=== PATIENT | male | born 1940 | race Caucasian/White ===

== ENCOUNTER 2016-10-24 21:05 | Inpatient (IN) | payer OTHER ==
[~2016-10-24] VITALS: Ht 180.3 cm; Wt 101.9 kg
[~2016-10-24 21:05] MED LIST: EPINEPHrine HCL (1:1000) 1 MG/ML VIAL IV ONE; LACTATED RINGER'S 1000 ML INJ 1,000 ML IV ONE; NOREPINEPHRINE-DEXTROSE DRIP 4 MG/250 ML BAG IV ONE; ONDANSETRON HCL 4 MG/2 ML VIAL IV PUSH ONE; PHENYLEPH/NS 1000 MCG/10 ML SYR IV ONE; PHENYLEPHRINE HCL 10 MG/ML VIAL IV ONE; SODIUM BICARBONATE 8.4% INJ 50 MEQ/50 ML SYR IV ONE
[2016-10-24 21:10] VITALS: O2SAT 100
[2016-10-24 21:29] LABS: I-STAT POTASSIUM 3.8 MMOL/L (3.5-4.9)
[2016-10-24 21:33] LABS: AUTOMATED NEUTROPHIL # 9.6 TH/MM3 (1.8-7.7); BASOPHIL # 0.1 TH/MM3 (0-0.2); BASOPHIL % 0.5 % (0.0-2.0); EOSINOPHIL # 0.4 TH/MM3 (0-0.4); HEMATOCRIT 29.4 % (39.0-51.0); LYMPH % 38.2 % (9.0-44.0); MEAN CELL VOLUME 76.4 FL (80.0-100.0); MEAN CORPUSCULAR HEMOGLOBIN 23.8 PG (27.0-34.0); MEAN CORPUSCULAR HGB CONC 31.2 % (32.0-36.0); MONO % 6.6 % (0.0-8.0); NEUT % 52.7 % (16.0-70.0); PLATELET COUNT 326 TH/MM3 (150-450); RED BLOOD COUNT 3.85 MIL/MM3 (4.50-5.90); RED CELL DISTRIBUTION WIDTH 17.2 % (11.6-17.2); WHITE BLOOD COUNT 18.3 TH/MM3 (4.0-11.0)
[2016-10-24] MEDS ORDERED: ceFAZolin 2 GM PREMIX 50 ML IV STA (21:33)
[2016-10-24] MEDS ORDERED: DIPHTH/TETANUS/ACEL PERTUSSIS (BOOSTER) 0.5 ML VIAL/PFS IM ONE (21:33)
[2016-10-24 21:34] LABS: HEMO FLAGS AUTO DIFF
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
[2016-10-24] MEDS ORDERED: IOHEXOL 350 MG/ML 10 ML VIAL (for RAD DIAG) IV ONE (21:39)
[2016-10-24 21:45] LABS: APTT (PATIENT) 24.2 SEC (24.3-30.1); PROTHROMBIN TIME - PATIENT 10.8 SEC (9.8-11.6)
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
[2016-10-24] MEDS ORDERED: ONDANSETRON HCL 4 MG/2 ML VIAL IV PRN (22:00)
[2016-10-24] MEDS ORDERED: levETIRAcetam INJ 500 MG in SODIUM CHLORIDE 0.9% INJ 100 ML IV SCH ×2 (22:00→22:30)
[2016-10-24] MEDS ORDERED: SODIUM CHLORIDE 0.9% FLUSH 5 ML FLUSH IVF PRN (22:00)
[2016-10-24] MEDS ORDERED: DOCUSATE SODIUM 100 MG CAP PO PRN (22:00)
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
[2016-10-24 22:09] LABS: BANDS 3 % (0-6); EOSINOPHILS 1 % (0-4); PLATELET ESTIMATE SMEAR NORMAL (NORMAL); PLATELET MORPHOLOGY NORMAL (NORMAL); POLYS (SEG NEUTROPHILS) 68 % (16-70); SCAN/DIFF FINAL DIFF MANUAL; WBC DIFF SAMPLE 100
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
[2016-10-24] MEDS ORDERED: POTASSIUM PHOSPHATE MONOBASIC 500 MG TAB PO/TUBE PRN (22:15)
[2016-10-24] MEDS ORDERED: POTASSIUM PHOSPHATE INJ 30 MMOL in SODIUM CHLOR 0.9% 250 ML INJ 250 ML IV PRN (22:15)
[2016-10-24] MEDS ORDERED: MAGNESIUM SULFATE INJ 4 GM in SODIUM CHLORIDE 0.9% INJ 92 ML IV PRN (22:15)
[2016-10-24] MEDS ORDERED: MAGNESIUM SULFATE INJ 2 GM in SODIUM CHLORIDE 0.9% INJ 96 ML IV PRN (22:15)
[2016-10-24] MEDS ORDERED: POTASSIUM CHLOR 20 MEQ PREMIX 100 ML IV PRN ×2 (22:15)
[2016-10-24] MEDS ORDERED: PROPOFOL 1000 MG/100 ML INJ 100 ML IV SCH (22:15)
[2016-10-24] MEDS ORDERED: POTASSIUM CL 40 MEQ/30 ML LIQ UDC PO/TUBE PRN ×2 (22:15)
[2016-10-24] MEDS ORDERED: MAGNESIUM OXIDE 400 MG TAB PO PRN (22:15)
[2016-10-24] MEDS ORDERED: POTASSIUM PHOSPHATE MONOBASIC 500 MG TAB PO PRN (22:15)
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
[2016-10-24] MEDS ORDERED: ceFAZolin INJ 1,000 MG VIAL IV ONE (22:19)
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
[2016-10-24] MEDS ORDERED: THROMBIN (TOPICAL) 5,000 UNIT VIAL ONE (22:44)
[2016-10-24 22:45] LABS: BLOOD GAS BASE EXCESS -4.6 mmol/L (-2-2); BLOOD GAS CARBOXYHEMOGLOBIN 1.8 % (0-4); BLOOD GAS HCO3 20 mmol/L (22-26); BLOOD GAS METHEMOGLOBIN 0.8 % (0-2); BLOOD GAS O2 HGB SATURATION 97 % (90-100); BLOOD GAS OXYGEN CONTENT 13.5 Vol % (12.0-20.0); BLOOD GAS PCO2 36 mmHg (38-42); BLOOD GAS PO2 175 mmHg (61-120); BLOOD GAS TOTAL HGB 9.7 G/DL (12.0-16.0); CRITICAL VALUE NO; FIO2 100 %; OXYGEN DEVICE O.R. ABG; STAT YES; TEMP CORR TO 98.6
[2016-10-24] MEDS ORDERED: LIDOCAINE 2%/EPINEPHrine 1:100,000 30ML MDV ONE (22:45)
[2016-10-24] MEDS ORDERED: GELFOAM SIZE 100 ONE (22:45)
[2016-10-24] MEDS ORDERED: LIDOCAINE 1.5%/EPINEPHrine 1:200,000 PF SOLN 30 ML AMP INFIL ONE (23:29)
[2016-10-24 23:47] LABS: BLOOD GAS BASE EXCESS -6.1 mmol/L (-2-2); BLOOD GAS CARBOXYHEMOGLOBIN 1.9 % (0-4); BLOOD GAS HCO3 19 mmol/L (22-26); BLOOD GAS METHEMOGLOBIN 0.9 % (0-2); BLOOD GAS O2 HGB SATURATION 97 % (90-100); BLOOD GAS OXYGEN CONTENT 13.1 Vol % (12.0-20.0); BLOOD GAS PCO2 37 mmHg (38-42); BLOOD GAS PO2 193 mmHg (61-120); BLOOD GAS TOTAL HGB 9.3 G/DL (12.0-16.0); CRITICAL VALUE NO; OXYGEN DEVICE VENTILATOR; TEMP CORR TO 98.6; VENT SETTINGS PER ANESTESIA
[2016-10-24 23:48] LABS: DRAW SITE ART LINE; STAT YES
[2016-10-24 23:51] LABS: FIO2 100 %
[2016-10-25] VITALS (19 sets, daily range): BP systolic 91–117; BP diastolic 57–67; PULSE 89–114; RESP 14–24; TEMP 97.8–99.8; O2SAT 79–100
[2016-10-25] MEDS ORDERED: MIDAZOLAM HCL 2 MG/2 ML VIAL ONE ×2 (01:00)
[2016-10-25 01:17] LABS: AUTOMATED NEUTROPHIL # 23.4 TH/MM3 (1.8-7.7); BASOPHIL # 0.1 TH/MM3 (0-0.2); BASOPHIL % 0.4 % (0.0-2.0); EOSINOPHIL % 0.1 % (0.0-4.0); HEMATOCRIT 26.2 % (39.0-51.0); LYMPH % 10.7 % (9.0-44.0); LYMPHOCYTE # 3.1 TH/MM3 (1.0-4.8); MEAN CELL VOLUME 80.4 FL (80.0-100.0); MEAN CORPUSCULAR HEMOGLOBIN 25.5 PG (27.0-34.0); MEAN CORPUSCULAR HGB CONC 31.8 % (32.0-36.0); MONO % 9.4 % (0.0-8.0); NEUT % 79.4 % (16.0-70.0); PLATELET COUNT 241 TH/MM3 (150-450); RED BLOOD COUNT 3.25 MIL/MM3 (4.50-5.90); RED CELL DISTRIBUTION WIDTH 16.2 % (11.6-17.2); WHITE BLOOD COUNT 29.4 TH/MM3 (4.0-11.0)
[2016-10-25] MEDS: fentaNYL DRIP 250 ML IV SCH (01:17)
[2016-10-25 01:19] LABS: HEMO FLAGS AUTO DIFF
[2016-10-25 01:32] LABS: MAGNESIUM 1.9 MG/DL (1.5-2.5)
[2016-10-25 01:33] LABS: BLOOD GAS BASE EXCESS -6.2 mmol/L (-2-2); BLOOD GAS CARBOXYHEMOGLOBIN 1.5 % (0-4); BLOOD GAS HCO3 19 mmol/L (22-26); BLOOD GAS METHEMOGLOBIN 0.9 % (0-2); BLOOD GAS O2 HGB SATURATION 94 % (90-100); BLOOD GAS OXYGEN CONTENT 11.9 Vol % (12.0-20.0); BLOOD GAS PCO2 40 mmHg (38-42); BLOOD GAS PO2 95 mmHg (61-120); BLOOD GAS TOTAL HGB 8.8 G/DL (12.0-16.0); CRITICAL VALUE NO; OXYGEN DEVICE VENTILATOR; TEMP CORR TO 98.6
[2016-10-25 01:34] LABS: DRAW SITE ART LINE; FIO2 70 %; NUMBER OF ARTERIAL PUNCTURES 0; STAT YES; ULNAR PULSE PRESENT
[2016-10-25 01:35] LABS: CALCIUM-PROTEIN CORRECTED 8.6 MG/DL (8.5-10.1); TOTAL BILIRUBIN ADULT 0.8 MG/DL (0.2-1.0)
[2016-10-25 01:37] LABS: APTT (PATIENT) 26.8 SEC (24.3-30.1); INTERNATIONAL NORMALIZED RATIO 1.2 RATIO; PROTHROMBIN TIME - PATIENT 13.4 SEC (9.8-11.6)
[2016-10-25] MEDS: POTASSIUM CHLOR 40 MEQ PREMIX 100 ML IV PRN ×2 (03:01→05:19)
[2016-10-25] MEDS: NOREPINEPHRINE INJ 4 MG in SODIUM CHLOR 0.9% 250 ML INJ 250 ML IV SCH ×2 (03:45→09:56)
[2016-10-25] MEDS: EPINEPHrine (1:1000) INJ 2 MG in SODIUM CHLOR 0.9% 250 ML INJ 250 ML IV SCH ×2 (03:45→13:48)
[2016-10-25] MEDS ORDERED: SODIUM CHLOR 0.9% 1000 ML INJ 1,000 ML IV ONE (04:15)
[2016-10-25] MEDS ORDERED: ALBUMIN HUMAN 5% 25 GM/500 ML BOTTLE IV ONE (04:15)
[2016-10-25 04:29] LABS: BURR CELLS 1+ (NORMAL); CRENATED RBCS 1+ (NORMAL); SCAN/DIFF AUTO DIFF CONFIRMED
[2016-10-25 05:58] LABS: APTT (PATIENT) 27.6 SEC (24.3-30.1); INTERNATIONAL NORMALIZED RATIO 1.2 RATIO; PROTHROMBIN TIME - PATIENT 12.9 SEC (9.8-11.6)
[2016-10-25 05:59] LABS: ALKALINE PHOSPHATASE 78 U/L (45-117); ALT (GPT) 15 U/L (12-78); ANION GAP 19 MEQ/L (5-15); AST (GOT) 66 U/L (15-37); BICARBONATE 18.4 MEQ/L (21.0-32.0); BLOOD UREA NITROGEN 14 MG/DL (7-18); CHLORIDE 103 MEQ/L (98-107); GLOMERULAR FILTRATION RATE 49 ML/MIN (>89); INDIRECT BILIRUBIN 1.1 MG/DL (0.0-0.8); POTASSIUM 3.1 MEQ/L (3.5-5.1); SODIUM (NA) 140 MEQ/L (136-145); TOTAL BILIRUBIN ADULT 1.5 MG/DL (0.2-1.0)
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
[2016-10-25] MEDS: CHLORHEXIDINE 0.12% (ORAL KIT) 15 ML CUP MT SCH ×2 (08:00→20:16)
[2016-10-25] MEDS: SODIUM CHLORIDE 0.9% FLUSH 5 ML FLUSH IVF SCH ×2 (09:00→20:19)
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
[2016-10-25 09:51] LABS: AUTOMATED NEUTROPHIL # 16.9 TH/MM3 (1.8-7.7); BASOPHIL % 0.2 % (0.0-2.0); LYMPH % 4.6 % (9.0-44.0); LYMPHOCYTE # 0.9 TH/MM3 (1.0-4.8); MEAN CELL VOLUME 80.9 FL (80.0-100.0); MEAN CORPUSCULAR HEMOGLOBIN 27.3 PG (27.0-34.0); MEAN CORPUSCULAR HGB CONC 33.7 % (32.0-36.0); MONO % 11.7 % (0.0-8.0); NEUT % 83.5 % (16.0-70.0); PLATELET COUNT 178 TH/MM3 (150-450); RED BLOOD COUNT 3.71 MIL/MM3 (4.50-5.90); WHITE BLOOD COUNT 20.3 TH/MM3 (4.0-11.0)
[2016-10-25 09:54] LABS: HEMO FLAGS AUTO DIFF
[2016-10-25] MEDS: levETIRAcetam INJ 500 MG in SODIUM CHLORIDE 0.9% INJ 100 ML IV SCH ×2 (10:01→20:19)
[2016-10-25] MEDS ORDERED: Vancomycin Consult Pharmacy 1 EA OTHER PRN (10:15)
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
[2016-10-25 11:15] LABS: BANDS 21 % (0-6); METAMYELOCYTES 1 % (0-1); MYELOCYTES 1 % (0-0); NEUTROPHIL # MANUAL DIFF 15.6 TH/MM3 (1.8-7.7); POLYS (SEG NEUTROPHILS) 54 % (16-70); WBC DIFF SAMPLE 100
[2016-10-25 11:16] LABS: PLATELET ESTIMATE SMEAR NORMAL (NORMAL); PLATELET MORPHOLOGY NORMAL (NORMAL); POLYCHROMASIA 2.4 % (0.0-1.9); SCAN/DIFF FINAL DIFF MANUAL
--- NOTE | 2016-10-25 11:44 | EC ---
Study Study Date:10/25/2016 STUDY CONCLUSIONS SUMMARY - Left ventricle: The cavity size was normal. Wall thickness was normal. Systolic function was mildly reduced. The estimated ejection fraction was in the range of 45% to 50%. Wall motion was normal; there were no regional wall motion abnormalities. - Mitral valve: Mild regurgitation. - Tricuspid valve: Mild regurgitation. - Pulmonary arteries: Systolic pressure was moderately to severely increased. PA peak pressure: 58mm Hg (S). If LV function is below 40, please consider prescribing an ACEI or ARB or document rationale for non-use. PROCEDURE DATA STUDY STATUS: Elective. Procedure: Transthoracic echocardiography. Image quality was fair. Scanning was performed from the parasternal, apical, and subcostal acoustic windows. Study completion: The patient tolerated the procedure well. Transthoracic echocardiography. M-mode, complete 2D, complete spectral Doppler, and color Doppler. Patient status: Inpatient. CARDIAC ANATOMY LEFT VENTRICLE: The cavity size was normal. Wall thickness was normal. Systolic function was mildly reduced. The estimated ejection fraction was in the range of 45% to 50%. Wall motion was normal; there were no regional wall motion abnormalities. AORTIC VALVE: Trileaflet; normal thickness leaflets. Doppler: Transvalvular velocity was within the normal range. There was no stenosis. No regurgitation. AORTA: The aorta was trivially dilated. Aortic root: The aortic root was normal in size. MITRAL VALVE: Structurally normal valve. Doppler: Transvalvular velocity was within the normal range. There was no evidence for stenosis. Mild regurgitation. LEFT ATRIUM: The atrium was normal in size. RIGHT VENTRICLE: The cavity size was normal. Wall thickness was normal. PULMONIC VALVE: Doppler: Transvalvular velocity was within the normal range. There was no evidence for stenosis. No regurgitation. TRICUSPID VALVE: Structurally normal valve. Doppler: Transvalvular velocity was within the normal range. Mild regurgitation. PULMONARY ARTERY: The main pulmonary artery was normal-sized. Systolic pressure was moderately to severely increased. RIGHT ATRIUM: The atrium was normal in size. PERICARDIUM: There was no pericardial effusion. SYSTEMIC VEINS: Inferior vena cava: The vessel was normal in size. BASIC MEASUREMENTS ADULT Normal Left ventricle LV internal dimension, ED, chordal level, *32.5 mm 43-52 PLAX LV internal dimension, ES, chordal level, 26.6 mm 23-38 PLAX Fractional shortening, chordal level, PLAX *18 % >29 LV posterior wall thickness, ED 9.37 mm IVS/LVPW ratio, ED *1.89 <1.3 Ventricular septum Septal thickness, ED 17.7 mm Aortic valve Leaflet separation *28 mm 15-26 Right ventricle RV internal dimension, ED, PLAX 29.5 mm 19-38 BASIC MEASUREMENTS ADULT Normal Aortic valve Leaflet separation *28 mm 15-26 Aorta Root diameter, ED *38 mm 20-37 Left atrium Anterior-posterior dimension, ES 34 mm 19-40 LA/aortic root ratio 0.89 DOPPLER MEASUREMENTS ADULT Normal Main pulmonary artery Pressure, S *58 mm Hg =30 Mitral valve Peak E-wave velocity 47.4 cm/s Peak A-wave velocity 56.3 cm/s Peak E/A ratio 0.8 Tricuspid valve Regurgitant peak velocity 346 cm/s Peak RV-RA gradient, S 48 mm Hg Maximal regurgitant velocity 346 cm/s Systemic veins Estimated CVP 10 mm Hg Right ventricle RV pressure, S *58 mm Hg <30 LEGEND: Mean values are shown as u=mean value. Asterisk (*) carmichael values outside specified normal range. Prepared and signed by Zhane Garza [id number]
[2016-10-25] MEDS: CEFEPIME INJ 2,000 MG in SODIUM CHLORIDE 0.9% INJ 100 ML IV SCH ×2 (12:03→20:18)
[2016-10-25] MEDS ORDERED: CALCIUM GLUCONATE INJ 2 GM in DEXTROSE 5% IN WATER 100ML INJ 100 ML IV ONE ×2 (13:00)
--- NOTE | 2016-10-25 13:12 | EKG ---
Date Performed: 10/25/2016 Time Performed: 07:57:36 PTAGE: 89 years EKG: Sinus rhythm NORMAL ECG NO PREVIOUS TRACING DOCTOR: Nathalie Marcano Interpretating Date/Time 10/25/2016 13:09:20
[2016-10-25] MEDS: BACITRACIN TOP OINT 15 GM TUBE TOP SCH ×2 (13:32→20:19)
[2016-10-25] MEDS: VANCOMYCIN INJ 2,000 MG in SODIUM CHLORID 0.9% 500 ML INJ 500 ML IV SCH (13:33)
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
[2016-10-25] MEDS ORDERED: RESP: ALBUTEROL 2.5 MG/IPRATROPIUM 0.5 MG NEB (PRN) NEB (16:00)
[2016-10-25] MEDS: RESP: ALBUTEROL 2.5 MG/IPRATROPIUM 0.5 MG NEB (SCH) NEB ×2 (16:50→19:54)
[2016-10-25 17:56] LABS: BLOOD GAS BASE EXCESS -6.8 mmol/L (-2-2); BLOOD GAS CARBOXYHEMOGLOBIN 1.5 % (0-4); BLOOD GAS HCO3 18 mmol/L (22-26); BLOOD GAS O2 HGB SATURATION 95 % (90-100); BLOOD GAS OXYGEN CONTENT 11.8 Vol % (12.0-20.0); BLOOD GAS PCO2 31 mmHg (38-42); BLOOD GAS PO2 90 mmHg (61-120); BLOOD GAS TOTAL HGB 8.8 G/DL (12.0-16.0); CRITICAL VALUE NO; OXYGEN DEVICE VENTILATOR; TEMP CORR TO 98.6
[2016-10-25 17:57] LABS: DRAW SITE ART LINE; STAT NO; VENT SETTINGS 18/600/+8/50%
[2016-10-25] MEDS ORDERED: DEXTROSE 50% IN WATER 50 ML VIAL(D50) IV PUSH PRN (19:00)
[2016-10-25] MEDS ORDERED: GLUCAGON 1 MG/ML VIAL OTHER PRN (19:00)
[2016-10-25] MEDS: SODIUM CHLOR 0.9% 1000 ML INJ 1,000 ML IV SCH (19:19)
[2016-10-25] MEDS: LOW DOSE INSULIN NOVOLIN REGULAR SUPPLEMENTAL SCALE SQ SCH (20:49)
[2016-10-25] MEDS: 3% SALINE INJ 500 ML IV SCH (21:45)
[2016-10-26] VITALS (18 sets, daily range): BP systolic 113–130; BP diastolic 53–58; PULSE 92–100; RESP 18–21; TEMP 98.4–100.3; O2SAT 97–100
[2016-10-26] MEDS: LOW DOSE INSULIN NOVOLIN REGULAR SUPPLEMENTAL SCALE SQ SCH ×7 (00:27→23:50)
[2016-10-26] MEDS: NOREPINEPHRINE INJ 4 MG in SODIUM CHLOR 0.9% 250 ML INJ 250 ML IV SCH (00:41)
[2016-10-26] MEDS: RESP: ALBUTEROL 2.5 MG/IPRATROPIUM 0.5 MG NEB (SCH) NEB ×4 (03:36→19:31)
[2016-10-26] MEDS: CEFEPIME INJ 2,000 MG in SODIUM CHLORIDE 0.9% INJ 100 ML IV SCH ×3 (04:00→20:13)
[2016-10-26 05:18] LABS: BLOOD GAS BASE EXCESS -2.6 mmol/L (-2-2); BLOOD GAS CARBOXYHEMOGLOBIN 1.5 % (0-4); BLOOD GAS HCO3 21 mmol/L (22-26); BLOOD GAS METHEMOGLOBIN 0.8 % (0-2); BLOOD GAS O2 HGB SATURATION 97 % (90-100); BLOOD GAS OXYGEN CONTENT 11.5 Vol % (12.0-20.0); BLOOD GAS PCO2 34 mmHg (38-42); BLOOD GAS PO2 140 mmHg (61-120); BLOOD GAS TOTAL HGB 8.2 G/DL (12.0-16.0); CRITICAL VALUE NO; FIO2 40 %; TEMP CORR TO 98.6; VENT SETTINGS VENT
[2016-10-26 05:19] LABS: DRAW SITE ALINE
[2016-10-26 05:37] LABS: HEMATOCRIT 23.8 % (39.0-51.0); MEAN CELL VOLUME 80.7 FL (80.0-100.0); MEAN CORPUSCULAR HEMOGLOBIN 27.6 PG (27.0-34.0); MEAN CORPUSCULAR HGB CONC 34.3 % (32.0-36.0); PLATELET COUNT 124 TH/MM3 (150-450); RED BLOOD COUNT 2.95 MIL/MM3 (4.50-5.90); RED CELL DISTRIBUTION WIDTH 16.7 % (11.6-17.2); REVIEW FLAG FINAL; WHITE BLOOD COUNT 8.4 TH/MM3 (4.0-11.0)
[2016-10-26 05:51] LABS: INTERNATIONAL NORMALIZED RATIO 1.2 RATIO
--- NOTE | 2016-10-26 05:51 | RADRPT ---
EXAM DATE/TIME: 10/26/2016 04:30 [facility] COMPARISON: CHEST SINGLE AP, October 24, 2016, 21:00. INDICATIONS : Shortness of breath. MEDICAL HISTORY : Unobtainable. SURGICAL HISTORY : Unobtainable. ENCOUNTER: Subsequent ACUITY: 3 days PAIN SCORE: Non-responsive. LOCATION: Bilateral chest FINDINGS: A single portable frontal view of the chest shows small bilateral pleural effusions with associated b ibasilar pulmonary consolidations. These are more pronounced from the prior study. Heart is normal in size. Endotracheal tube tip is 3 cm proximal to karina. Nasogastric tube tip is in the region of the body of the stomach. Left subclavian central line without pneumothorax. CONCLUSION: Worsening bibasilar infiltrates and small effusions. Claude Rojo Jr., MD on October 26, 2016 at 5:49 Board Certified Radiologist. This report was verified electronically.
[2016-10-26 06:03] LABS: BICARBONATE 21.8 MEQ/L (21.0-32.0); MAGNESIUM 1.7 MG/DL (1.5-2.5); POTASSIUM 4.5 MEQ/L (3.5-5.1)
[2016-10-26 06:19] LABS: CALCIUM-PROTEIN CORRECTED 7.9 MG/DL (8.5-10.1)
[2016-10-26] MEDS: SODIUM CHLOR 0.9% 1000 ML INJ 1,000 ML IV SCH (06:19)
[2016-10-26] MEDS: SODIUM PHOSPHATE INJ 30 MMOL in SODIUM CHLOR 0.9% 250 ML INJ 240 ML IV PRN (06:52)
[2016-10-26] MEDS ORDERED: LACTULOSE SYRUP 20 GM/30 ML CUP PO ONE (07:15)
[2016-10-26] MEDS: fentaNYL DRIP 250 ML IV SCH (08:00)
[2016-10-26] MEDS: MAGNESIUM HYDROXIDE SUSP 30 ML CUP PO SCH (08:00)
[2016-10-26] MEDS: PANTOPRAZOLE SODIUM 40 MG VIAL IV PUSH SCH (08:00)
[2016-10-26] MEDS: CHLORHEXIDINE 0.12% (ORAL KIT) 15 ML CUP MT SCH ×2 (08:00→20:13)
[2016-10-26] MEDS: SODIUM CHLORIDE 0.9% FLUSH 5 ML FLUSH IVF SCH ×2 (08:01→20:14)
[2016-10-26] MEDS: levETIRAcetam INJ 500 MG in SODIUM CHLORIDE 0.9% INJ 100 ML IV SCH ×2 (08:01→20:59)
[2016-10-26] MEDS: BACITRACIN TOP OINT 15 GM TUBE TOP SCH ×2 (08:02→20:14)
[2016-10-26] MEDS ORDERED: FUROSEMIDE 40 MG/4 ML VIAL IV PUSH ONE (09:15)
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
[2016-10-26] MEDS: VANCOMYCIN INJ 2,000 MG in SODIUM CHLORID 0.9% 500 ML INJ 500 ML IV SCH (13:36)
[2016-10-26] MEDS: FUROSEMIDE 20 MG/2 ML VIAL IV PUSH SCH (17:24)
[2016-10-26] MEDS: 3% SALINE INJ 500 ML IV SCH (20:59)
[2016-10-27] VITALS (18 sets, daily range): BP systolic 101–158; BP diastolic 50–106; PULSE 64–103; RESP 18–23; TEMP 98.1–100.4; O2SAT 97–100
[2016-10-27] MEDS ORDERED: ADENOSINE IV SOLN 3 MG/ML 2 ML VIAL ONE ×5 (03:09→06:53)
--- NOTE | 2016-10-27 03:19 | PD.PROCEDR ---
Procedure Note Procedure Date: 10/27/16 Procedure: Chemical cardioversion Indication: SVT Details of procedure: Patient went into SVT in 160s, did not improve with ETT suctioning and BP dropped to systolic mid 90s. Given adenosine 6 mg IV and converted to sinus tachycardia 120s. 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 Then SBP was in 180s to 200s and considered possibility of seizure as etiology of SVT. ICP was 12. Started propofol drip. He is already on Keppra 500 IV q12. Sent stat BMP/magnesium. Will check EEG to evaluate for seizure given episode of SVT. Ana Fernandez MD Oct 27, 2016 03:19
[2016-10-27] MEDS ORDERED: PROPOFOL 1000 MG/100 ML INJ 100 ML IV SCH (03:30)
[2016-10-27] MEDS: fentaNYL DRIP 250 ML IV SCH (03:30)
[2016-10-27] MEDS: NOREPINEPHRINE INJ 4 MG in SODIUM CHLOR 0.9% 250 ML INJ 250 ML IV SCH (03:30)
[2016-10-27] MEDS: RESP: ALBUTEROL 2.5 MG/IPRATROPIUM 0.5 MG NEB (SCH) NEB ×4 (03:39→20:26)
[2016-10-27 03:48] LABS: AUTOMATED NEUTROPHIL # 5.3 TH/MM3 (1.8-7.7); BASOPHIL % 0.3 % (0.0-2.0); EOSINOPHIL % 0.4 % (0.0-4.0); HEMATOCRIT 21.8 % (39.0-51.0); HEMO FLAGS DIFF FINAL; LYMPH % 10.6 % (9.0-44.0); LYMPHOCYTE # 0.7 TH/MM3 (1.0-4.8); MEAN CELL VOLUME 80.7 FL (80.0-100.0); MEAN CORPUSCULAR HGB CONC 33.4 % (32.0-36.0); MONO % 8.9 % (0.0-8.0); NEUT % 79.8 % (16.0-70.0); PLATELET COUNT 117 TH/MM3 (150-450); RED BLOOD COUNT 2.69 MIL/MM3 (4.50-5.90); RED CELL DISTRIBUTION WIDTH 17.1 % (11.6-17.2); WHITE BLOOD COUNT 6.7 TH/MM3 (4.0-11.0)
[2016-10-27 04:07] LABS: BICARBONATE 23.2 MEQ/L (21.0-32.0); CALCIUM-PROTEIN CORRECTED 8.3 MG/DL (8.5-10.1); MAGNESIUM 1.8 MG/DL (1.5-2.5); POTASSIUM 3.7 MEQ/L (3.5-5.1)
[2016-10-27] MEDS: CEFEPIME INJ 2,000 MG in SODIUM CHLORIDE 0.9% INJ 100 ML IV SCH ×3 (04:20→21:11)
[2016-10-27] MEDS: LOW DOSE INSULIN NOVOLIN REGULAR SUPPLEMENTAL SCALE SQ SCH ×6 (04:34→23:51)
[2016-10-27] MEDS: SODIUM PHOSPHATE INJ 30 MMOL in SODIUM CHLOR 0.9% 250 ML INJ 240 ML IV PRN (04:35)
--- NOTE | 2016-10-27 05:18 | RADRPT ---
EXAM DATE/TIME: 10/27/2016 04:02 [facility] COMPARISON: CHEST SINGLE AP, October 26, 2016, 4:30. INDICATIONS : Short of breath. MEDICAL HISTORY : None. SURGICAL HISTORY : None. ENCOUNTER: Subsequent ACUITY: 4 - 6 days PAIN SCORE: Non-responsive. LOCATION: Bilateral chest FINDINGS: A single portable frontal view of the chest shows an endotracheal tube with the tip 1 cm from the car taylor. Left subclavian central line. Nasogastric tube tip in the body of the stomach. Tiny bilateral pl eural effusions. Bibasilar consolidation. Heart is normal in size. Appearance is stable. CONCLUSION: Unchanged bilateral pleural effusions and bibasilar infiltrates. Claude Rojo Jr., MD on October 27, 2016 at 5:16 Board Certified Radiologist. This report was verified electronically.
[2016-10-27 05:45] LABS: BLOOD GAS BASE EXCESS 0.7 mmol/L (-2-2); BLOOD GAS CARBOXYHEMOGLOBIN 1.7 % (0-4); BLOOD GAS HCO3 24 mmol/L (22-26); BLOOD GAS METHEMOGLOBIN 0.7 % (0-2); BLOOD GAS O2 HGB SATURATION 96 % (90-100); BLOOD GAS PCO2 34 mmHg (38-42); BLOOD GAS PO2 110 mmHg (61-120); BLOOD GAS TOTAL HGB 7.2 G/DL (12.0-16.0); TEMP CORR TO 98.6
[2016-10-27 05:46] LABS: CRITICAL VALUE NO; DRAW SITE ALINE; VENT SETTINGS VENT
[2016-10-27] MEDS ORDERED: PHENYLEPHRINE HCL 10 MG/ML VIAL ONE (06:56)
[2016-10-27] MEDS ORDERED: ADENOSINE IV SOLN 3 MG/ML 2 ML VIAL IV PUSH ONE ×2 (07:00)
[2016-10-27] MEDS ORDERED: TERBUTALINE INJ 1 MG/ML AMP SQ PRN ×2 (07:00→08:30)
--- NOTE | 2016-10-27 07:07 | PD.PROCEDR ---
Procedure Note Procedure Date: 10/27/16 Procedure: Chemical cardioversion Indication: SVT Details of procedure: Pt developed recurrent SVT. Converted with adenosine 6 mg IV. Labs resulted with potassium 3.7, magnesium 1.8, phosphorus 1.3. He is receiving sodium phos 30 mmol. Ordered magnesium 2 g IV and potassium chloride 30 mEq IV. EEG pending. Followup CT brain. Ana Fernandez MD Oct 27, 2016 07:07
[2016-10-27] MEDS: MAGNESIUM SULFATE 1 GM PREMIX 100 ML IV SCH ×2 (07:44→08:00)
[2016-10-27] MEDS: PANTOPRAZOLE SODIUM 40 MG VIAL IV PUSH SCH (07:51)
[2016-10-27] MEDS: MAGNESIUM HYDROXIDE SUSP 30 ML CUP PO SCH (07:51)
[2016-10-27] MEDS: FUROSEMIDE 20 MG/2 ML VIAL IV PUSH SCH ×2 (07:52→17:06)
[2016-10-27] MEDS: levETIRAcetam INJ 500 MG in SODIUM CHLORIDE 0.9% INJ 100 ML IV SCH ×2 (07:52→21:11)
[2016-10-27] MEDS: BACITRACIN TOP OINT 15 GM TUBE TOP SCH ×2 (07:53→21:12)
[2016-10-27] MEDS: CHLORHEXIDINE 0.12% (ORAL KIT) 15 ML CUP MT SCH ×2 (07:53→21:11)
[2016-10-27] MEDS: SODIUM CHLORIDE 0.9% FLUSH 5 ML FLUSH IVF SCH ×2 (07:53→21:11)
[2016-10-27] MEDS: POTASSIUM CHLOR 10 MEQ PREMIX 100 ML IV SCH ×3 (09:03→11:01)
[2016-10-27] MEDS ORDERED: CALCIUM GLUCONATE 10% 1 GM/10 ML VIAL IV PUSH ONE (09:15)
[2016-10-27] MEDS ORDERED: CALCIUM GLUCONATE INJ 1 GM in SODIUM CHLORIDE 0.9% INJ 100 ML IV ONE (10:00)
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
[2016-10-27] MEDS: PHENYLEPHRINE INJ 40 MG in DEXTROSE 5% IN WATE 500 ML INJ 496 ML IV SCH ×2 (10:22)
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
[2016-10-27] MEDS: VANCOMYCIN INJ 2,000 MG in SODIUM CHLORID 0.9% 500 ML INJ 500 ML IV SCH (16:11)
--- NOTE | 2016-10-27 16:24 | RADRPT ---
EXAM DATE/TIME: 10/27/2016 15:18 [facility] COMPARISON: No previous studies available for comparison. INDICATIONS : Through colostomy FLUORO TIME: 2.2 minutes IMAGE COUNT: 11 CONTRAST: 1. Gastroview MEDICAL HISTORY : None. SURGICAL HISTORY : colostomy ENCOUNTER: Initial ACUITY: 3 days PAIN SCORE: Non-responsive. LOCATION: Bilateral gatrografin enema FINDINGS: There is a bird's beak-type narrowing of the colon just proximal to the ostomy. Gastrografin accumula karla around impacted stool within dilated colon in the parastomal hernia. I was unable to advance cont rast within the colon beyond the parastomal hernia. CONCLUSION: 1. Birds beak-type narrowing of the colon just proximal to the ostomy with Gastrografin contrast accu mulating around impacted stool within a large parastomal hernia containing colon. I was unable to adv ance contrast beyond the hernia. John Araujo MD on October 27, 2016 at 16:20 Board Certified Radiologist. This report was verified electronically.
[2016-10-27 18:41] LABS: HEMATOCRIT 26.7 % (39.0-51.0)
[2016-10-27] MEDS: 3% SALINE INJ 500 ML IV SCH (19:05)
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
[2016-10-28] VITALS (18 sets, daily range): BP systolic 122–158; BP diastolic 52–61; PULSE 74–92; RESP 18–21; TEMP 99.2–101; O2SAT 95–100
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
[2016-10-28] MEDS: CEFEPIME INJ 2,000 MG in SODIUM CHLORIDE 0.9% INJ 100 ML IV SCH ×3 (03:03→22:05)
[2016-10-28] MEDS: LOW DOSE INSULIN NOVOLIN REGULAR SUPPLEMENTAL SCALE SQ SCH ×5 (03:03→20:00)
[2016-10-28] MEDS: PHENYLEPHRINE INJ 40 MG in DEXTROSE 5% IN WATE 500 ML INJ 496 ML IV SCH ×2 (03:06)
[2016-10-28] MEDS: RESP: ALBUTEROL 2.5 MG/IPRATROPIUM 0.5 MG NEB (SCH) NEB ×4 (03:31→20:03)
[2016-10-28 04:57] LABS: HEMATOCRIT 25.3 % (39.0-51.0); MEAN CELL VOLUME 81.2 FL (80.0-100.0); MEAN CORPUSCULAR HEMOGLOBIN 27.4 PG (27.0-34.0); MEAN CORPUSCULAR HGB CONC 33.7 % (32.0-36.0); PLATELET COUNT 121 TH/MM3 (150-450); RED BLOOD COUNT 3.12 MIL/MM3 (4.50-5.90); RED CELL DISTRIBUTION WIDTH 16.6 % (11.6-17.2); REVIEW FLAG FINAL; WHITE BLOOD COUNT 8.5 TH/MM3 (4.0-11.0)
--- NOTE | 2016-10-28 05:05 | RADRPT ---
EXAM DATE/TIME: 10/28/2016 04:13 [facility] COMPARISON: CT BRAIN W/O CONTRAST, October 25, 2016, 6:03. INDICATIONS : Follow up bleed. RADIATION DOSE: 65.41 CTDIvol (mGy) MEDICAL HISTORY : Non-responsive. SURGICAL HISTORY : Non-responsive. ENCOUNTER: Subsequent ACUITY: 4 - 6 days PAIN SCALE: Non-responsive LOCATION: cranial TECHNIQUE: Multiple contiguous axial images were obtained of the head. Using automated exposure control and adj ustment of the mA and/or kV according to patient size, radiation dose was kept as low as reasonably a chievable to obtain optimal diagnostic quality images. FINDINGS: Since the previous examination there has been development of intraparenchymal hemorrhage involving th e right temporal lobe as well as the high right parietal lobe near the vertex. The subdural drain has been removed with a tiny amount of residual subdural blood overlying the right temporal parietal lob e. Edema is seen throughout the right cerebral hemisphere. No midline shift. Suprasellar cistern cont ains CSF. A small amount of intraventricular hemorrhage is seen layering within the occipital horns b ilaterally. A right-sided ventriculostomy again seen. Right-sided craniotomy. Mucosal thickening with air-fluid levels involving the maxillary sinuses bilaterally. Mucosal thickening without air-fluid l evel seen involving the ethmoid air cells and sphenoid sinuses. Opacification of the right mastoid ai r cells is new. Left mastoid air cells are clear. CONCLUSION: 1. Development of intraparenchymal hemorrhage within the right temporal lobe and right parietal lobe. 2. Stable subdural blood on the right. The subdural drain has been removed. 3. Interval opacification of the right mastoid air cells. 4. Acute pansinus disease. Claude Rojo Jr., MD on October 28, 2016 at 4:59 Board Certified Radiologist. This report was verified electronically.
[2016-10-28 05:22] LABS: BICARBONATE 24.1 MEQ/L (21.0-32.0); MAGNESIUM 2.2 MG/DL (1.5-2.5); POTASSIUM 3.8 MEQ/L (3.5-5.1)
[2016-10-28 05:40] LABS: CALCIUM-PROTEIN CORRECTED 7.8 MG/DL (8.5-10.1)
[2016-10-28 05:52] LABS: BLOOD GAS BASE EXCESS 0.7 mmol/L (-2-2); BLOOD GAS CARBOXYHEMOGLOBIN 1.9 % (0-4); BLOOD GAS HCO3 24 mmol/L (22-26); BLOOD GAS METHEMOGLOBIN 0.7 % (0-2); BLOOD GAS O2 HGB SATURATION 95 % (90-100); BLOOD GAS OXYGEN CONTENT 13.8 Vol % (12.0-20.0); BLOOD GAS PCO2 32 mmHg (38-42); BLOOD GAS PO2 88 mmHg (61-120); BLOOD GAS TOTAL HGB 10.3 G/DL (12.0-16.0); CRITICAL VALUE NO; FIO2 40 %; OXYGEN DEVICE VENTILATOR; TEMP CORR TO 98.6; VENT SETTINGS AC 18/600/5PEEP
[2016-10-28 05:53] LABS: DRAW SITE ART LINE; STAT NO
[2016-10-28] MEDS: levETIRAcetam INJ 500 MG in SODIUM CHLORIDE 0.9% INJ 100 ML IV SCH ×2 (08:23→21:16)
[2016-10-28] MEDS: FUROSEMIDE 20 MG/2 ML VIAL IV PUSH SCH ×2 (08:24→17:03)
[2016-10-28] MEDS: PANTOPRAZOLE SODIUM 40 MG VIAL IV PUSH SCH (08:24)
[2016-10-28] MEDS: fentaNYL DRIP 250 ML IV SCH ×2 (08:24→21:16)
[2016-10-28] MEDS: LACTULOSE SYRUP 20 GM/30 ML CUP PO SCH (08:24)
[2016-10-28] MEDS: CHLORHEXIDINE 0.12% (ORAL KIT) 15 ML CUP MT SCH ×2 (08:25→21:21)
[2016-10-28] MEDS: MAGNESIUM HYDROXIDE SUSP 30 ML CUP PO SCH (08:50)
[2016-10-28] MEDS: SODIUM CHLORIDE 0.9% FLUSH 5 ML FLUSH IVF SCH ×2 (08:50→21:16)
[2016-10-28] MEDS: BACITRACIN TOP OINT 15 GM TUBE TOP SCH ×2 (08:50→21:20)
--- NOTE | 2016-10-28 10:12 | PD.CARD.PN ---
Subjective Subjective Remarks No events/arrhythmias over night Objective Medications Current Medications Medications (Trade) Dose Ordered Sig/Khalif Route Start Time Stop Time Status Last Admin (NS Flush) 2 ml UNSCH PRN IVF 10/24/16 22:00 (NS Flush) 2 ml BID IVF 10/25/16 09:00 10/28/16 08:50 (Tylenol) 650 mg Q4H PRN PO 10/24/16 22:00 (Morphine Inj) 5 mg Q4H PRN IV PUSH 10/24/16 22:00 (Zofran Inj) 4 mg Q6H PRN IV 10/24/16 22:00 Docusate Sodium 100 mg 100 mg BID PRN PO 10/24/16 22:00 Potassium Chloride 100 ml @ 50 mls/hr Q2H PRN IV 10/24/16 22:15 10/25/16 05:19 (KCl 20 Meq Premix Inj) 100 ml @ 50 mls/hr Q2H PRN IV 10/24/16 22:15 Potassium Chloride 40 meq 40 meq UNSCH PRN PO/TUBE 10/24/16 22:15 Potassium Chloride 100 ml @ 25 mls/hr UNSCH PRN IV 10/24/16 22:15 Potassium Chloride 100 ml @ 50 mls/hr Q2H PRN IV 10/24/16 22:15 (Magnesium Sulfate Inj/NS Inj) 100 ml @ 50 mls/hr UNSCH PRN IV 10/24/16 22:15 Magnesium Oxide 800 mg 800 mg UNSCH PRN PO 10/24/16 22:15 (Magnesium Sulfate Inj/NS Inj) 100 ml @ 50 mls/hr UNSCH PRN IV 10/24/16 22:15 Potassium Phosphate 2000 mg 2,000 mg Q4H PRN PO 10/24/16 22:15 (Sodium Phosphate Inj/NS 250 ml Inj) 250 ml @ 42 mls/hr UNSCH PRN IV 10/24/16 22:15 10/27/16 04:35 (KCl 40 Meq/30 ml Liq) 40 meq UNSCH PRN PO/TUBE 10/24/16 22:15 Potassium Phosphate 2000 mg 2,000 mg UNSCH PRN PO/TUBE 10/24/16 22:15 (Potassium Phosphate Inj/NS 250 ml Inj) 260 ml @ 42 mls/hr UNSCH PRN IV 10/24/16 22:15 Chlorhexidine Gluconate 15 ml 15 ml BID@08,20 MT 10/25/16 08:00 10/28/16 08:25 Fentanyl Citrate 250 ml @ 0 mls/hr TITRATE IV 10/24/16 22:15 10/28/16 08:24 Epinephrine HCl 2 mg/Sodium Chloride 252 ml @ 0 mls/hr TITRATE IV 10/25/16 01:00 10/25/16 13:48 (Levophed Inj/NS 250 ml Inj) 254 ml @ 0 mls/hr TITRATE IV 10/25/16 01:00 10/27/16 03:30 Bacitracin 1 applic 1 applic Q12HR TOP 10/25/16 09:45 10/28/16 08:50 Levetriacetam 500 mg/Sodium Chloride 105 ml @ 420 mls/hr Q12HR IV 10/25/16 10:00 10/28/16 08:23 Pharmacy Profile Note 0 ml @ 0 mls/hr UNSCH PRN OTHER 10/25/16 10:15 Cefepime HCl 2000 mg/Sodium Chloride 100 ml @ 200 mls/hr Q8H IV 10/25/16 12:00 11/02/16 12:00 10/28/16 03:03 (Vancomycin Inj/ NS 500 ml Inj) 520 ml @ 250 mls/hr Q24H IV 10/25/16 13:00 11/02/16 12:00 10/27/16 16:11 Miscellaneous Information SPECIFIC LAB TO BE DRAWN:VANCO TROUGH DATE... ONCE ONCE XX 10/28/16 12:45 10/28/16 12:46 (Milk Of Magnesia Liq) 30 ml DAILY PO 10/26/16 09:00 10/28/16 08:50 (Protonix Inj) 40 mg DAILY IV PUSH 10/26/16 09:00 10/28/16 08:24 (D50w (Vial) Inj) 25 ml UNSCH PRN IV PUSH 10/25/16 19:00 (Glucagon Inj) 1 mg UNSCH PRN OTHER 10/25/16 19:00 Insulin Human Regular 1 1 Q4HR SQ 10/25/16 20:00 10/28/16 08:51 (Sodium Chloride 3% Inj) 500 ml @ 20 mls/hr Q24H IV 10/25/16 21:45 10/27/16 19:05 Furosemide 20 mg 20 mg BID@09,18 IV PUSH 10/26/16 18:00 10/28/16 08:24 Propofol 100 ml @ 0 mls/hr TITRATE IV 10/27/16 03:30 (Neosynephrine Inj/D5W 500 ml Inj) 500 ml @ 0 mls/hr TITRATE IV 10/27/16 09:30 10/28/16 03:06 (Brethine Inj) 1 mg UNSCH PRN SQ 10/27/16 08:30 (Lactulose Liq) 30 ml DAILY PO 10/28/16 09:00 10/28/16 08:24 (Lopressor Inj) 2.5 mg Q4HR IV PUSH 10/28/16 12:00 Vital Signs / I&O Vital Signs Date Time Temp Pulse Resp B/P Pulse Ox O2 Delivery O2 Flow Rate FiO2 10/28/16 08:45 98 40 10/28/16 08:00 99.4 89 18 131/57 98 10/28/16 08:00 131/57 10/28/16 08:00 40 10/28/16 08:00 89 10/28/16 07:00 97 Mechanical Ventilator 10/28/16 06:00 89 10/28/16 05:21 95 40 10/28/16 04:00 100.2 90 18 136/56 95 10/28/16 04:00 100 100 10/28/16 04:00 92 10/28/16 04:00 40 10/28/16 02:00 79 10/28/16 01:32 98 40 10/28/16 00:00 40 10/28/16 00:00 100.2 83 18 131/55 98 10/28/16 00:00 83 10/27/16 22:00 92 10/27/16 20:26 98 40 10/27/16 20:00 40 10/27/16 20:00 100.4 78 18 138/58 99 10/27/16 20:00 78 10/27/16 20:00 138/58 10/27/16 19:00 99 Mechanical Ventilator 10/27/16 18:13 98 40 10/27/16 18:00 78 10/27/16 16:00 74 10/27/16 16:00 40 10/27/16 16:00 99.4 74 18 138/60 100 10/27/16 15:45 100 100 10/27/16 14:00 79 10/27/16 12:58 100 40 10/27/16 12:00 40 10/27/16 12:00 79 10/27/16 12:00 99.1 79 18 153/68 100 I/O 10/27/16 10/27/16 10/27/16 10/28/16 10/28/16 10/28/16 07:00 15:00 23:00 07:00 15:00 23:00 Intake Total 1002 ml 2095 ml 1657 ml 1067 ml Output Total 360 ml 1478 ml 1282 ml 507 ml Balance 642 ml 617 ml 375 ml 560 ml Intake IV Total 512 ml 1297 ml 1402 ml 839 ml Tube Feeding 430 ml 298 ml 255 ml 228 ml Packed Cells 500 ml Tube Irrigant 60 ml Output Urine Total 300 ml 1400 ml 1200 ml 400 ml Stool Total 0 ml 0 ml 25 ml 50 ml Drainage Total 60 ml 78 ml 57 ml 57 ml Physical Exam GENERAL: Sedated/intubated SKIN: Warm and dry. HEAD: Incisions with van, clean/dry EYES: Pupils equal and round ENT: No nasal bleeding or discharge. Mucous membranes pink and moist. NECK: Trachea midline. No JVD. CARDIOVASCULAR: Regular rate and rhythm. No murmurs noted RESPIRATORY: No accessory muscle use. Clear to auscultation. Breath sounds equal bilaterally. GASTROINTESTINAL: Abdomen soft, non-tender, nondistended. Hepatic and splenic margins not palpable. MUSCULOSKELETAL: Extremities without clubbing, cyanosis, or edema. NEUROLOGICAL: Sedated on the vent Laboratory Laboratory Tests Test 10/27/16 10/27/16 10/27/16 10/28/16 11:05 17:25 22:30 04:35 Sodium Level 146 MEQ/L 143 MEQ/L 142 MEQ/L 146 MEQ/L Serum Osmolality 301 MOSM/KG 300 MOSM/KG 299 MOSM/KG 298 MOSM/KG Phosphorus Level 1.9 MG/DL Hemoglobin 9.0 GM/DL 8.5 GM/DL Hematocrit 26.7 % 25.3 % White Blood Count 8.5 TH/MM3 Red Blood Count 3.12 MIL/MM3 Mean Corpuscular Volume 81.2 FL Mean Corpuscular Hemoglobin 27.4 PG Mean Corpuscular Hemoglobin 33.7 % Concent Red Cell Distribution Width 16.6 % Platelet Count 121 TH/MM3 Mean Platelet Volume 7.5 FL Potassium Level 3.8 MEQ/L Chloride Level 111 MEQ/L Carbon Dioxide Level 24.1 MEQ/L Anion Gap 11 MEQ/L Blood Urea Nitrogen 16 MG/DL Creatinine 0.79 MG/DL Estimat Glomerular Filtration 95 ML/MIN Rate Random Glucose 117 MG/DL Calcium Level 6.8 MG/DL Protein Corrected Calcium 7.8 MG/DL Magnesium Level 2.2 MG/DL Total Protein 5.1 GM/DL Test 10/28/16 05:30 Blood Gas Puncture Site ART LINE Blood Gas Patient Temperature 98.6 Blood Gas HCO3 24 mmol/L Blood Gas Base Excess 0.7 mmol/L Blood Gas Oxygen Saturation 95 % Arterial Blood pH 7.48 Arterial Blood Partial 32 mmHg Pressure CO2 Arterial Blood Partial 88 mmHg Pressure O2 Arterial Blood Oxygen Content 13.8 Vol % Arterial Blood 1.9 % Carboxyhemoglobin Arterial Blood Methemoglobin 0.7 % Blood Gas Hemoglobin 10.3 G/DL Oxygen Delivery Device VENTILATOR Blood Gas Ventilator Setting AC 18/600/5PEEP Blood Gas Inspired Oxygen 40 % Assessment and Plan Problem List: (1) Major neurocognitive disorder as late effect of traumatic brain injury without behavioral disturbance (2) Facial bone fracture (3) Multiple rib fractures (4) Subdural hematoma (5) SVT (supraventricular tachycardia) Assessment and Plan 1) No episodes of arrhythmia over night 2) Will change Lopressor IV to PO 3) Watch blood pressure with BB Problem Qualifiers (1) Facial bone fracture: Qualified Code: S02.92XA - Closed fracture of facial bone, unspecified facial bone, initial encounter (2) Multiple rib fractures: Qualified Code: S22.43XA - Closed fracture of multiple ribs of both sides, initial encounter Irving Aleman DO Oct 28, 2016 10:12
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
[2016-10-28] MEDS ORDERED: PILL SPLITTER OTHER PRN (10:45)
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
[2016-10-28] MEDS: METOPROLOL TARTRATE 25 MG TAB PO SCH ×2 (11:49→21:17)
[2016-10-28] MEDS ORDERED: METOPROLOL TARTRATE 5 MG/5 ML VIAL IV PUSH SCH (12:00)
--- NOTE | 2016-10-28 12:03 | MG ---
cc: BOZENA HEARN M.D. Lab No: [id number] Date: 10/27/2016 Age: __ Sex: M Race: __ REFERRING PHYSICIAN Dr. Viera TECHNIQUE 17 channel EEG DESCRIPTION The background rhythm reveals generalized slowing in the delta frequency at 3-4 Hz. Intermittent sharp activity is identified bilaterally in both parietal and temporal lobes. No lateralizing features are identified. INTERPRETATION Abnormal study on the basis of generalized slowing consistent with a significant encephalopathy. In addition, sharp activity is identified bilaterally suggesting a possible underlying convulsive tendency. MD ALBER Ledbetter/SHANNON /11:24 AM /11:59 AM
[2016-10-28] MEDS ORDERED: PHARMACY ORDERED LAB XX ONE (12:45)
[2016-10-28] MEDS: VANCOMYCIN INJ 2,000 MG in SODIUM CHLORID 0.9% 500 ML INJ 500 ML IV SCH (13:50)
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
[2016-10-28] MEDS: ACETAMINOPHEN 325 MG TAB PO PRN (16:54)
[2016-10-28] MEDS: 3% SALINE INJ 500 ML IV SCH (21:45)
[2016-10-29] VITALS (18 sets, daily range): BP systolic 132–160; BP diastolic 56–62; PULSE 65–81; RESP 14–27; TEMP 98.6–100.2; O2SAT 97–100
[2016-10-29 03:10] LABS: AUTOMATED NEUTROPHIL # 5.1 TH/MM3 (1.8-7.7); BASOPHIL # 0.1 TH/MM3 (0-0.2); BASOPHIL % 1.4 % (0.0-2.0); EOSINOPHIL # 0.2 TH/MM3 (0-0.4); HEMATOCRIT 23.3 % (39.0-51.0); LYMPH % 15.6 % (9.0-44.0); LYMPHOCYTE # 1.2 TH/MM3 (1.0-4.8); MEAN CELL VOLUME 81.4 FL (80.0-100.0); MEAN CORPUSCULAR HEMOGLOBIN 27.7 PG (27.0-34.0); MEAN CORPUSCULAR HGB CONC 34.1 % (32.0-36.0); MONO % 11.8 % (0.0-8.0); NEUT % 68.2 % (16.0-70.0); PLATELET COUNT 143 TH/MM3 (150-450); RED BLOOD COUNT 2.86 MIL/MM3 (4.50-5.90); RED CELL DISTRIBUTION WIDTH 16.6 % (11.6-17.2); WHITE BLOOD COUNT 7.5 TH/MM3 (4.0-11.0)
[2016-10-29 03:17] LABS: HEMO FLAGS AUTO DIFF
[2016-10-29] MEDS: CEFEPIME INJ 2,000 MG in SODIUM CHLORIDE 0.9% INJ 100 ML IV SCH ×3 (03:17→20:14)
[2016-10-29 03:24] LABS: PROTHROMBIN TIME - PATIENT 10.7 SEC (9.8-11.6)
[2016-10-29 03:44] LABS: BICARBONATE 25.2 MEQ/L (21.0-32.0); MAGNESIUM 2.1 MG/DL (1.5-2.5); POTASSIUM 3.5 MEQ/L (3.5-5.1)
[2016-10-29] MEDS: RESP: ALBUTEROL 2.5 MG/IPRATROPIUM 0.5 MG NEB (SCH) NEB ×2 (03:57→07:48)
[2016-10-29] MEDS: LOW DOSE INSULIN NOVOLIN REGULAR SUPPLEMENTAL SCALE SQ SCH ×6 (04:00→22:13)
[2016-10-29 04:10] LABS: CALCIUM-PROTEIN CORRECTED 8.2 MG/DL (8.5-10.1)
[2016-10-29 05:18] LABS: BLOOD GAS BASE EXCESS 1.2 mmol/L (-2-2); BLOOD GAS CARBOXYHEMOGLOBIN 2.1 % (0-4); BLOOD GAS HCO3 24 mmol/L (22-26); BLOOD GAS METHEMOGLOBIN 0.7 % (0-2); BLOOD GAS O2 HGB SATURATION 95 % (90-100); BLOOD GAS OXYGEN CONTENT 10.7 Vol % (12.0-20.0); BLOOD GAS PCO2 29 mmHg (38-42); BLOOD GAS PO2 92 mmHg (61-120); BLOOD GAS TOTAL HGB 7.9 G/DL (12.0-16.0); TEMP CORR TO 98.6
[2016-10-29 05:20] LABS: CRITICAL VALUE YES; OXYGEN DEVICE VENTILATOR
[2016-10-29 05:21] LABS: DRAW SITE ART LINE; FIO2 40 %; STAT NO; VENT SETTINGS VAC18/600/PEEP5
[2016-10-29 05:26] LABS: BANDS 5 % (0-6); CORRECTED NUCLEATED RBC 4 /100 WBC (0-0); EOSINOPHILS 6 % (0-4); NEUTROPHIL # MANUAL DIFF 5.3 TH/MM3 (1.8-7.7); POLYS (SEG NEUTROPHILS) 66 % (16-70); SCAN/DIFF FINAL DIFF MANUAL; WBC DIFF SAMPLE 100
[2016-10-29 05:34] LABS: PLATELET ESTIMATE SMEAR NORMAL (NORMAL); PLATELET MORPHOLOGY NORMAL (NORMAL)
[2016-10-29] MEDS ORDERED: VANCOMYCIN INJ 2,000 MG in SODIUM CHLORID 0.9% 500 ML INJ 500 ML IV SCH (06:00)
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
--- NOTE | 2016-10-29 06:40 | RADRPT ---
EXAM DATE/TIME: 10/29/2016 05:21 [facility] COMPARISON: CHEST SINGLE AP, October 28, 2016, 1:38. INDICATIONS : Evaluate for pulmonary disease. MEDICAL HISTORY : None. SURGICAL HISTORY : None. ENCOUNTER: Subsequent ACUITY: 4 - 6 days PAIN SCORE: Non-responsive. LOCATION: Bilateral chest FINDINGS: Single portable frontal view of the chest shows an endotracheal tube with the tip 2 cm proximal to th e karina. Nasogastric tube courses off the inferior margin of the film. Left subclavian central line. Low lung volumes. Small bilateral pleural effusions and bibasilar infiltrates are unchanged. CONCLUSION: Unchanged effusions and infiltrates bilaterally. Claude Rojo Jr., MD on October 29, 2016 at 6:37 Board Certified Radiologist. This report was verified electronically.
--- NOTE | 2016-10-29 08:17 | PD.CARD.PN ---
Subjective Subjective Remarks No events over night Objective Medications Current Medications Medications (Trade) Dose Ordered Sig/Khalif Route Start Time Stop Time Status Last Admin (Tylenol) 650 mg Q4H PRN PO 10/24/16 22:00 10/28/16 16:54 (Morphine Inj) 5 mg Q4H PRN IV PUSH 10/24/16 22:00 (Zofran Inj) 4 mg Q6H PRN IV 10/24/16 22:00 Docusate Sodium 100 mg 100 mg BID PRN PO 10/24/16 22:00 Potassium Chloride 100 ml @ 50 mls/hr Q2H PRN IV 10/24/16 22:15 10/25/16 05:19 (KCl 20 Meq Premix Inj) 100 ml @ 50 mls/hr Q2H PRN IV 10/24/16 22:15 Potassium Chloride 40 meq 40 meq UNSCH PRN PO/TUBE 10/24/16 22:15 Potassium Chloride 100 ml @ 25 mls/hr UNSCH PRN IV 10/24/16 22:15 Potassium Chloride 100 ml @ 50 mls/hr Q2H PRN IV 10/24/16 22:15 (Magnesium Sulfate Inj/NS Inj) 100 ml @ 50 mls/hr UNSCH PRN IV 10/24/16 22:15 Magnesium Oxide 800 mg 800 mg UNSCH PRN PO 10/24/16 22:15 (Magnesium Sulfate Inj/NS Inj) 100 ml @ 50 mls/hr UNSCH PRN IV 10/24/16 22:15 Potassium Phosphate 2000 mg 2,000 mg Q4H PRN PO 10/24/16 22:15 (Sodium Phosphate Inj/NS 250 ml Inj) 250 ml @ 42 mls/hr UNSCH PRN IV 10/24/16 22:15 10/27/16 04:35 (KCl 40 Meq/30 ml Liq) 40 meq UNSCH PRN PO/TUBE 10/24/16 22:15 Potassium Phosphate 2000 mg 2,000 mg UNSCH PRN PO/TUBE 10/24/16 22:15 (Potassium Phosphate Inj/NS 250 ml Inj) 260 ml @ 42 mls/hr UNSCH PRN IV 10/24/16 22:15 Chlorhexidine Gluconate 15 ml 15 ml BID@08,20 MT 10/25/16 08:00 10/28/16 21:21 Fentanyl Citrate 250 ml @ 0 mls/hr TITRATE IV 10/24/16 22:15 10/28/16 21:16 Epinephrine HCl 2 mg/Sodium Chloride 252 ml @ 0 mls/hr TITRATE IV 10/25/16 01:00 10/25/16 13:48 (Levophed Inj/NS 250 ml Inj) 254 ml @ 0 mls/hr TITRATE IV 10/25/16 01:00 10/27/16 03:30 Bacitracin 1 applic 1 applic Q12HR TOP 10/25/16 09:45 10/28/16 21:20 Levetriacetam 500 mg/Sodium Chloride 105 ml @ 420 mls/hr Q12HR IV 10/25/16 10:00 10/28/16 21:16 Pharmacy Profile Note 0 ml @ 0 mls/hr UNSCH PRN OTHER 10/25/16 10:15 (Maxipime Inj/NS Inj) 100 ml @ 200 mls/hr Q8H IV 10/25/16 12:00 11/02/16 12:00 10/29/16 03:17 (Milk Of Magnesia Liq) 30 ml DAILY PO 10/26/16 09:00 10/28/16 08:50 (Protonix Inj) 40 mg DAILY IV PUSH 10/26/16 09:00 10/28/16 08:24 (D50w (Vial) Inj) 25 ml UNSCH PRN IV PUSH 10/25/16 19:00 (Glucagon Inj) 1 mg UNSCH PRN OTHER 10/25/16 19:00 Insulin Human Regular 1 1 Q4HR SQ 10/25/16 20:00 10/28/16 08:51 (Sodium Chloride 3% Inj) 500 ml @ 20 mls/hr Q24H IV 10/25/16 21:45 10/27/16 19:05 Furosemide 20 mg 20 mg BID@09,18 IV PUSH 10/26/16 18:00 10/28/16 17:03 Propofol 100 ml @ 0 mls/hr TITRATE IV 10/27/16 03:30 (Neosynephrine Inj/D5W 500 ml Inj) 500 ml @ 0 mls/hr TITRATE IV 10/27/16 09:30 10/28/16 03:06 (Brethine Inj) 1 mg UNSCH PRN SQ 10/27/16 08:30 (Lactulose Liq) 30 ml DAILY PO 10/28/16 09:00 10/28/16 08:24 (Lopressor) 12.5 mg Q12HR PO 10/28/16 10:15 10/28/16 21:17 Miscellaneous 1 ea 1 ea UNSCH PRN OTHER 10/28/16 10:45 10/28/16 21:15 (Vancomycin Inj/ NS 500 ml Inj) 522.5 ml @ 250 mls/hr Q24H IV 10/29/16 12:00 Miscellaneous Information SPECIFIC LAB TO BE DRAWN:VANCOMYCIN TROUGH DATE TO... ONCE ONCE XX 10/31/16 11:45 10/31/16 11:46 Vital Signs / I&O Vital Signs Date Time Temp Pulse Resp B/P Pulse Ox O2 Delivery O2 Flow Rate FiO2 10/29/16 07:48 98 40 10/29/16 06:00 79 10/29/16 05:30 40 10/29/16 05:24 100 40 10/29/16 04:18 98 40 10/29/16 04:00 72 10/29/16 04:00 40 10/29/16 04:00 100.2 72 20 146/58 98 10/29/16 02:00 73 10/29/16 01:00 100 40 10/29/16 00:00 40 10/29/16 00:00 99.7 72 27 132/56 99 10/29/16 00:00 72 10/28/16 22:00 74 10/28/16 22:00 100 40 10/28/16 20:10 99 40 10/28/16 20:00 78 10/28/16 20:00 40 10/28/16 20:00 122/52 10/28/16 20:00 99.2 78 21 122/52 97 10/28/16 18:00 85 10/28/16 16:00 82 10/28/16 16:00 40 10/28/16 16:00 101.0 82 20 143/56 97 10/28/16 15:47 100 40 10/28/16 14:00 78 10/28/16 12:00 92 10/28/16 12:00 100.9 92 19 158/61 99 10/28/16 12:00 40 10/28/16 11:48 99 40 10/28/16 10:00 87 10/28/16 08:45 98 40 I/O 10/28/16 10/28/16 10/28/16 10/29/16 10/29/16 10/29/16 07:00 15:00 23:00 07:00 15:00 23:00 Intake Total 1067 ml 601 ml 1354 ml 1089 ml Output Total 507 ml 1545 ml 1136 ml 627 ml Balance 560 ml -944 ml 218 ml 462 ml Intake IV Total 839 ml 829 ml 665 ml Tube Feeding 228 ml 481 ml 435 ml 374 ml Tube Irrigant 120 ml 90 ml 50 ml Output Urine Total 400 ml 1450 ml 1100 ml 575 ml Stool Total 50 ml 10 ml 5 ml 10 ml Drainage Total 57 ml 85 ml 31 ml 42 ml Physical Exam GENERAL: Sedated/intubated SKIN: Warm and dry. HEAD: Incisions with van, clean/dry EYES: Pupils equal and round ENT: No nasal bleeding or discharge. Mucous membranes pink and moist. NECK: Trachea midline. No JVD. CARDIOVASCULAR: Regular rate and rhythm. No murmurs noted RESPIRATORY: No accessory muscle use. Clear to auscultation. Breath sounds equal bilaterally. GASTROINTESTINAL: Abdomen soft, non-tender, nondistended. Hepatic and splenic margins not palpable. MUSCULOSKELETAL: Extremities without clubbing, cyanosis, or edema. NEUROLOGICAL: Sedated on the vent Laboratory Laboratory Tests Test 10/28/16 10/28/16 10/28/16 10/29/16 12:00 16:20 22:00 03:00 Sodium Level 145 MEQ/L 146 MEQ/L 143 MEQ/L 145 MEQ/L Serum Osmolality 306 MOSM/KG 305 MOSM/KG 306 MOSM/KG 298 MOSM/KG Vancomycin Level Trough 6.6 MCG/ML White Blood Count 7.5 TH/MM3 Red Blood Count 2.86 MIL/MM3 Hemoglobin 7.9 GM/DL Hematocrit 23.3 % Mean Corpuscular Volume 81.4 FL Mean Corpuscular Hemoglobin 27.7 PG Mean Corpuscular Hemoglobin 34.1 % Concent Red Cell Distribution Width 16.6 % Platelet Count 143 TH/MM3 Mean Platelet Volume 7.7 FL Neutrophils (%) (Auto) 68.2 % Lymphocytes (%) (Auto) 15.6 % Monocytes (%) (Auto) 11.8 % Eosinophils (%) (Auto) 3.0 % Basophils (%) (Auto) 1.4 % Neutrophils # (Auto) 5.1 TH/MM3 Lymphocytes # (Auto) 1.2 TH/MM3 Monocytes # (Auto) 0.9 TH/MM3 Eosinophils # (Auto) 0.2 TH/MM3 Basophils # (Auto) 0.1 TH/MM3 CBC Comment AUTO DIFF Differential Total Cells 100 Counted Neutrophils % (Manual) 66 % Band Neutrophils % 5 % Lymphocytes % 13 % Monocytes % 10 % Eosinophils % 6 % Neutrophils # (Manual) 5.3 TH/MM3 Nucleated Red Blood Cells 4 /100 WBC Differential Comment FINAL DIFF MANUAL Platelet Estimate NORMAL Platelet Morphology Comment NORMAL Red Cell Morphology Comment NORMAL Prothrombin Time 10.7 SEC Prothromb Time International 1.0 RATIO Ratio Potassium Level 3.5 MEQ/L Chloride Level 110 MEQ/L Carbon Dioxide Level 25.2 MEQ/L Anion Gap 10 MEQ/L Blood Urea Nitrogen 18 MG/DL Creatinine 0.67 MG/DL Estimat Glomerular Filtration 115 ML/MIN Rate Random Glucose 142 MG/DL Calcium Level 7.1 MG/DL Protein Corrected Calcium 8.2 MG/DL Magnesium Level 2.1 MG/DL Total Protein 5.1 GM/DL Test 10/29/16 05:08 Blood Gas Puncture Site ART LINE Blood Gas Patient Temperature 98.6 Blood Gas HCO3 24 mmol/L Blood Gas Base Excess 1.2 mmol/L Blood Gas Oxygen Saturation 95 % Arterial Blood pH 7.53 Arterial Blood Partial 29 mmHg Pressure CO2 Arterial Blood Partial 92 mmHg Pressure O2 Arterial Blood Oxygen Content 10.7 Vol % Arterial Blood 2.1 % Carboxyhemoglobin Arterial Blood Methemoglobin 0.7 % Blood Gas Hemoglobin 7.9 G/DL Oxygen Delivery Device VENTILATOR Blood Gas Ventilator Setting VAC18/600/PEEP5 Blood Gas Inspired Oxygen 40 % Assessment and Plan Problem List: (1) Major neurocognitive disorder as late effect of traumatic brain injury without behavioral disturbance (2) Facial bone fracture (3) Multiple rib fractures (4) Subdural hematoma (5) SVT (supraventricular tachycardia) Assessment and Plan 1) No episodes of arrhythmia over night 2) Continue Lopressor PO 3) Adenosine if needed 4) Even if Aflutter, unable to anticoagulate, but 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
[2016-10-29] MEDS: FUROSEMIDE 20 MG/2 ML VIAL IV PUSH SCH ×2 (08:44→17:21)
[2016-10-29] MEDS: levETIRAcetam INJ 500 MG in SODIUM CHLORIDE 0.9% INJ 100 ML IV SCH ×2 (08:44→20:14)
[2016-10-29] MEDS: PANTOPRAZOLE SODIUM 40 MG VIAL IV PUSH SCH (08:44)
[2016-10-29] MEDS: MAGNESIUM HYDROXIDE SUSP 30 ML CUP PO SCH (08:45)
[2016-10-29] MEDS: SODIUM CHLORIDE 0.9% FLUSH 5 ML FLUSH IVF SCH ×2 (08:45→20:14)
[2016-10-29] MEDS: CHLORHEXIDINE 0.12% (ORAL KIT) 15 ML CUP MT SCH ×2 (08:45→20:14)
[2016-10-29] MEDS: METOPROLOL TARTRATE 25 MG TAB PO SCH ×2 (08:45→20:14)
[2016-10-29] MEDS: LACTULOSE SYRUP 20 GM/30 ML CUP PO SCH (08:45)
[2016-10-29] MEDS: BACITRACIN TOP OINT 15 GM TUBE TOP SCH ×2 (08:46→20:15)
[2016-10-29] MEDS: POTASSIUM CHLOR 40 MEQ PREMIX 100 ML IV PRN (09:38)
[2016-10-29] MEDS: 3% SALINE INJ 500 ML IV SCH (09:38)
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
[2016-10-29] MEDS: VANCOMYCIN INJ 2,250 MG in SODIUM CHLORID 0.9% 500 ML INJ 500 ML IV SCH (12:13)
[2016-10-29] MEDS: MORPHINE SULFATE 8 MG/ML INJ IV PUSH PRN (12:56)
[2016-10-29 23:01] LABS: BICARBONATE 30.3 MEQ/L (21.0-32.0); POTASSIUM 3.7 MEQ/L (3.5-5.1)
[2016-10-29 23:16] LABS: CALCIUM-PROTEIN CORRECTED 7.9 MG/DL (8.5-10.1)
[2016-10-30] VITALS (19 sets, daily range): BP systolic 114–149; BP diastolic 46–60; PULSE 68–96; RESP 14–20; TEMP 99.2–101.3; O2SAT 97–100
[2016-10-30] MEDS: MORPHINE SULFATE 8 MG/ML INJ IV PUSH PRN ×2 (00:43→17:48)
[2016-10-30] MEDS: LOW DOSE INSULIN NOVOLIN REGULAR SUPPLEMENTAL SCALE SQ SCH ×6 (00:44→21:18)
[2016-10-30] MEDS: CEFEPIME INJ 2,000 MG in SODIUM CHLORIDE 0.9% INJ 100 ML IV SCH ×3 (02:08→21:18)
[2016-10-30 04:19] LABS: BLOOD GAS BASE EXCESS 2.9 mmol/L (-2-2); BLOOD GAS CARBOXYHEMOGLOBIN 2.2 % (0-4); BLOOD GAS HCO3 27 mmol/L (22-26); BLOOD GAS METHEMOGLOBIN 0.7 % (0-2); BLOOD GAS O2 HGB SATURATION 96 % (90-100); BLOOD GAS OXYGEN CONTENT 10.9 Vol % (12.0-20.0); BLOOD GAS PCO2 41 mmHg (38-42); BLOOD GAS PO2 111 mmHg (61-120); BLOOD GAS TOTAL HGB 7.9 G/DL (12.0-16.0); CRITICAL VALUE NO; DRAW SITE ALINE; FIO2 40 %; OXYGEN DEVICE VENTILATOR; STAT NO; TEMP CORR TO 98.6; VENT SETTINGS AC/14/600/PEEP5
[2016-10-30 04:22] LABS: HEMATOCRIT 22.8 % (39.0-51.0); MEAN CELL VOLUME 83.1 FL (80.0-100.0); MEAN CORPUSCULAR HEMOGLOBIN 27.9 PG (27.0-34.0); MEAN CORPUSCULAR HGB CONC 33.6 % (32.0-36.0); PLATELET COUNT 156 TH/MM3 (150-450); RED BLOOD COUNT 2.74 MIL/MM3 (4.50-5.90); RED CELL DISTRIBUTION WIDTH 16.4 % (11.6-17.2); REVIEW FLAG FINAL; WHITE BLOOD COUNT 7.8 TH/MM3 (4.0-11.0)
[2016-10-30] MEDS: ACETAMINOPHEN 325 MG TAB PO PRN (08:15)
[2016-10-30 08:51] LABS: BICARBONATE 27.8 MEQ/L (21.0-32.0); POTASSIUM 3.6 MEQ/L (3.5-5.1)
[2016-10-30] MEDS: FUROSEMIDE 20 MG/2 ML VIAL IV PUSH SCH ×2 (08:57→17:47)
[2016-10-30] MEDS: SODIUM CHLORIDE 0.9% FLUSH 5 ML FLUSH IVF SCH ×2 (08:57→21:17)
[2016-10-30] MEDS: PANTOPRAZOLE SODIUM 40 MG VIAL IV PUSH SCH (08:57)
[2016-10-30] MEDS: levETIRAcetam INJ 500 MG in SODIUM CHLORIDE 0.9% INJ 100 ML IV SCH ×2 (08:57→21:17)
[2016-10-30] MEDS: LACTULOSE SYRUP 20 GM/30 ML CUP PO SCH (08:58)
[2016-10-30] MEDS: MAGNESIUM HYDROXIDE SUSP 30 ML CUP PO SCH (08:58)
[2016-10-30] MEDS: METOPROLOL TARTRATE 25 MG TAB PO SCH ×2 (08:58→21:17)
[2016-10-30] MEDS: CHLORHEXIDINE 0.12% (ORAL KIT) 15 ML CUP MT SCH ×2 (08:58→21:18)
[2016-10-30] MEDS: BACITRACIN TOP OINT 15 GM TUBE TOP SCH ×2 (08:59→21:17)
[2016-10-30 09:03] LABS: CALCIUM-PROTEIN CORRECTED 7.9 MG/DL (8.5-10.1)
--- NOTE | 2016-10-30 09:19 | RADRPT ---
EXAM DATE/TIME: 10/30/2016 08:22 [facility] COMPARISON: CHEST SINGLE AP, October 29, 2016, 5:21. INDICATIONS : Short of breath, evaluate infiltrate MEDICAL HISTORY : head injury SURGICAL HISTORY : None. ENCOUNTER: Subsequent ACUITY: 1 week PAIN SCORE: Non-responsive. LOCATION: Bilateral chest FINDINGS: Endotracheal tube is stable and satisfactory position. NG tube extends into the stomach. Left subclav adair central line is stable. There is persistent basilar infiltrate and effusion. Visualized cardiac c ontours are stable. CONCLUSION: No significant change You Kilpatrick MD on October 30, 2016 at 9:17 Board Certified Radiologist. This report was verified electronically.
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
--- NOTE | 2016-10-30 11:16 | PD.CARD.PN ---
Subjective Subjective Remarks No events over night, no arrhythmias Objective Medications Current Medications Medications (Trade) Dose Ordered Sig/Khalif Route Start Time Stop Time Status Last Admin (Tylenol) 650 mg Q4H PRN PO 10/24/16 22:00 10/28/16 16:54 (Morphine Inj) 5 mg Q4H PRN IV PUSH 10/24/16 22:00 10/30/16 00:43 (Zofran Inj) 4 mg Q6H PRN IV 10/24/16 22:00 Docusate Sodium 100 mg 100 mg BID PRN PO 10/24/16 22:00 Potassium Chloride 100 ml @ 50 mls/hr Q2H PRN IV 10/24/16 22:15 10/25/16 05:19 (KCl 20 Meq Premix Inj) 100 ml @ 50 mls/hr Q2H PRN IV 10/24/16 22:15 Potassium Chloride 40 meq 40 meq UNSCH PRN PO/TUBE 10/24/16 22:15 Potassium Chloride 100 ml @ 25 mls/hr UNSCH PRN IV 10/24/16 22:15 10/29/16 09:38 Potassium Chloride 100 ml @ 50 mls/hr Q2H PRN IV 10/24/16 22:15 (Magnesium Sulfate Inj/NS Inj) 100 ml @ 50 mls/hr UNSCH PRN IV 10/24/16 22:15 Magnesium Oxide 800 mg 800 mg UNSCH PRN PO 10/24/16 22:15 (Magnesium Sulfate Inj/NS Inj) 100 ml @ 50 mls/hr UNSCH PRN IV 10/24/16 22:15 Potassium Phosphate 2000 mg 2,000 mg Q4H PRN PO 10/24/16 22:15 (Sodium Phosphate Inj/NS 250 ml Inj) 250 ml @ 42 mls/hr UNSCH PRN IV 10/24/16 22:15 10/27/16 04:35 (KCl 40 Meq/30 ml Liq) 40 meq UNSCH PRN PO/TUBE 10/24/16 22:15 Potassium Phosphate 2000 mg 2,000 mg UNSCH PRN PO/TUBE 10/24/16 22:15 (Potassium Phosphate Inj/NS 250 ml Inj) 260 ml @ 42 mls/hr UNSCH PRN IV 10/24/16 22:15 (Peridex 0.12% Liq) 15 ml BID@08,20 MT 10/25/16 08:00 10/30/16 08:58 Bacitracin 1 applic 1 applic Q12HR TOP 10/25/16 09:45 10/30/16 08:59 Levetriacetam 500 mg/Sodium Chloride 105 ml @ 420 mls/hr Q12HR IV 10/25/16 10:00 10/30/16 08:57 Pharmacy Profile Note 0 ml @ 0 mls/hr UNSCH PRN OTHER 10/25/16 10:15 (Maxipime Inj/NS Inj) 100 ml @ 200 mls/hr Q8H IV 10/25/16 12:00 11/02/16 12:00 10/30/16 02:08 (Milk Of Magnesia Liq) 30 ml DAILY PO 10/26/16 09:00 10/30/16 08:58 (Protonix Inj) 40 mg DAILY IV PUSH 10/26/16 09:00 10/30/16 08:57 (D50w (Vial) Inj) 25 ml UNSCH PRN IV PUSH 10/25/16 19:00 (Glucagon Inj) 1 mg UNSCH PRN OTHER 10/25/16 19:00 Insulin Human Regular 1 1 Q4HR SQ 10/25/16 20:00 10/30/16 04:00 (Sodium Chloride 3% Inj) 500 ml @ 20 mls/hr Q24H IV 10/25/16 21:45 10/29/16 09:38 (Lasix Inj) 20 mg BID@09,18 IV PUSH 10/26/16 18:00 10/30/16 08:57 (Brethine Inj) 1 mg UNSCH PRN SQ 10/27/16 08:30 (Lactulose Liq) 30 ml DAILY PO 10/28/16 09:00 10/30/16 08:58 (Lopressor) 12.5 mg Q12HR PO 10/28/16 10:15 10/30/16 08:58 Miscellaneous 1 ea 1 ea UNSCH PRN OTHER 10/28/16 10:45 10/28/16 21:15 (Vancomycin Inj/ NS 500 ml Inj) 522.5 ml @ 250 mls/hr Q24H IV 10/29/16 12:00 10/29/16 12:13 Miscellaneous Information SPECIFIC LAB TO BE DRAWN:VANCOMYCIN TROUGH DATE TO... ONCE ONCE XX 10/31/16 11:45 10/31/16 11:46 Vital Signs / I&O Vital Signs Date Time Temp Pulse Resp B/P Pulse Ox O2 Delivery O2 Flow Rate FiO2 10/30/16 10:00 80 10/30/16 08:08 40 10/30/16 08:04 98 40 10/30/16 08:00 124/54 10/30/16 08:00 96 10/30/16 08:00 40 10/30/16 08:00 101.3 96 18 124/54 97 10/30/16 06:00 73 10/30/16 04:00 72 10/30/16 04:00 100.5 72 14 131/52 98 10/30/16 04:00 40 10/30/16 03:56 98 40 10/30/16 02:00 77 10/30/16 00:51 98 40 10/30/16 00:00 69 10/30/16 00:00 40 10/30/16 00:00 99.2 69 14 142/55 98 10/29/16 22:00 65 10/29/16 20:05 98 40 10/29/16 20:00 99.0 78 14 132/56 97 10/29/16 20:00 132/56 10/29/16 20:00 78 10/29/16 20:00 40 10/29/16 18:00 81 10/29/16 17:45 40 10/29/16 16:00 75 10/29/16 16:00 40 10/29/16 16:00 100 40 10/29/16 16:00 99.3 80 25 160/62 99 10/29/16 14:00 78 10/29/16 14:00 78 10/29/16 12:00 80 10/29/16 12:00 40 10/29/16 12:00 100.1 80 18 150/58 99 I/O 10/29/16 10/29/16 10/29/16 10/30/16 10/30/16 10/30/16 07:00 15:00 23:00 07:00 15:00 23:00 Intake Total 1089 ml 1584 ml 1067 ml 970 ml Output Total 627 ml 2170 ml 1840 ml 640 ml Balance 462 ml -586 ml -773 ml 330 ml Intake IV Total 665 ml 997 ml 483 ml 475 ml Tube Feeding 374 ml 467 ml 464 ml 435 ml Tube Irrigant 50 ml 120 ml 120 ml 60 ml Output Urine Total 575 ml 2100 ml 1800 ml 600 ml Stool Total 10 ml 0 ml 0 ml 0 ml Drainage Total 42 ml 70 ml 40 ml 40 ml Physical Exam GENERAL: Intubated, no sedation SKIN: Warm and dry. HEAD: Incisions with van, clean/dry EYES: Pupils equal and round ENT: No nasal bleeding or discharge. Mucous membranes pink and moist. NECK: Trachea midline. No JVD. CARDIOVASCULAR: Regular rate and rhythm. No murmurs noted RESPIRATORY: No accessory muscle use. Clear to auscultation. Breath sounds equal bilaterally. GASTROINTESTINAL: Abdomen soft, non-tender, nondistended. Hepatic and splenic margins not palpable. MUSCULOSKELETAL: Extremities without clubbing, cyanosis, or edema. NEUROLOGICAL: Intubated Laboratory Laboratory Tests Test 10/29/16 10/29/16 10/29/16 10/30/16 11:15 17:00 22:30 04:00 Sodium Level 144 MEQ/L 144 MEQ/L 142 MEQ/L 145 MEQ/L Serum Osmolality 302 MOSM/KG 303 MOSM/KG 299 MOSM/KG 302 MOSM/KG Potassium Level 3.7 MEQ/L 3.6 MEQ/L Chloride Level 106 MEQ/L 108 MEQ/L Carbon Dioxide Level 30.3 MEQ/L 27.8 MEQ/L Anion Gap 6 MEQ/L 8 MEQ/L Blood Urea Nitrogen 17 MG/DL 20 MG/DL Creatinine 0.63 MG/DL 0.61 MG/DL Estimat Glomerular Filtration 123 ML/MIN 128 ML/MIN Rate Random Glucose 150 MG/DL 150 MG/DL Calcium Level 7.0 MG/DL 6.8 MG/DL Protein Corrected Calcium 7.9 MG/DL 7.9 MG/DL Total Protein 5.3 GM/DL 4.9 GM/DL White Blood Count 7.8 TH/MM3 Red Blood Count 2.74 MIL/MM3 Hemoglobin 7.7 GM/DL Hematocrit 22.8 % Mean Corpuscular Volume 83.1 FL Mean Corpuscular Hemoglobin 27.9 PG Mean Corpuscular Hemoglobin 33.6 % Concent Red Cell Distribution Width 16.4 % Platelet Count 156 TH/MM3 Mean Platelet Volume 7.8 FL Test 10/30/16 04:09 Blood Gas Puncture Site CLEMENTINA Blood Gas Patient Temperature 98.6 Blood Gas HCO3 27 mmol/L Blood Gas Base Excess 2.9 mmol/L Blood Gas Oxygen Saturation 96 % Arterial Blood pH 7.43 Arterial Blood Partial 41 mmHg Pressure CO2 Arterial Blood Partial 111 mmHg Pressure O2 Arterial Blood Oxygen Content 10.9 Vol % Arterial Blood 2.2 % Carboxyhemoglobin Arterial Blood Methemoglobin 0.7 % Blood Gas Hemoglobin 7.9 G/DL Oxygen Delivery Device VENTILATOR Blood Gas Ventilator Setting AC/14/600/PEEP5 Blood Gas Inspired Oxygen 40 % Assessment and Plan Problem List: (1) Major neurocognitive disorder as late effect of traumatic brain injury without behavioral disturbance (2) Facial bone fracture (3) Multiple rib fractures (4) Subdural hematoma (5) SVT (supraventricular tachycardia) Assessment and Plan 1) No episodes of arrhythmia over night 2) Continue Lopressor PO 3) Adenosine if needed 4) Even if Aflutter, unable to anticoagulate, 

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
[2016-10-30] MEDS: VANCOMYCIN INJ 2,250 MG in SODIUM CHLORID 0.9% 500 ML INJ 500 ML IV SCH (12:26)
[2016-10-30] MEDS: 3% SALINE INJ 500 ML IV SCH (21:45)
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
[2016-10-31] VITALS (18 sets, daily range): BP systolic 127–144; BP diastolic 59–65; PULSE 69–81; RESP 18–22; TEMP 99.1–101; O2SAT 93–100
[2016-10-31 00:28] LABS: BICARBONATE 32.5 MEQ/L (21.0-32.0); POTASSIUM 3.6 MEQ/L (3.5-5.1)
[2016-10-31 00:56] LABS: CALCIUM-PROTEIN CORRECTED 8.3 MG/DL (8.5-10.1)
[2016-10-31] MEDS: CEFEPIME INJ 2,000 MG in SODIUM CHLORIDE 0.9% INJ 100 ML IV SCH ×3 (03:30→19:41)
[2016-10-31] MEDS: LOW DOSE INSULIN NOVOLIN REGULAR SUPPLEMENTAL SCALE SQ SCH ×7 (03:31→23:21)
[2016-10-31 05:05] LABS: BLOOD GAS BASE EXCESS 5.7 mmol/L (-2-2); BLOOD GAS CARBOXYHEMOGLOBIN 2.2 % (0-4); BLOOD GAS HCO3 29 mmol/L (22-26); BLOOD GAS METHEMOGLOBIN 0.7 % (0-2); BLOOD GAS O2 HGB SATURATION 96 % (90-100); BLOOD GAS OXYGEN CONTENT 11.5 Vol % (12.0-20.0); BLOOD GAS PCO2 33 mmHg (38-42); BLOOD GAS PO2 97 mmHg (61-120); BLOOD GAS TOTAL HGB 8.4 G/DL (12.0-16.0); TEMP CORR TO 98.6
[2016-10-31 05:06] LABS: CRITICAL VALUE YES; OXYGEN DEVICE VENTILATOR
[2016-10-31 05:07] LABS: DRAW SITE RT RADIAL; FIO2 35 %; NUMBER OF ARTERIAL PUNCTURES 1; STAT NO; ULNAR PULSE PRESENT
--- NOTE | 2016-10-31 06:05 | RADRPT ---
EXAM DATE/TIME: 10/31/2016 04:26 [facility] COMPARISON: CHEST SINGLE AP, October 30, 2016, 8:22. INDICATIONS : Shortness of breath. MEDICAL HISTORY : None. SURGICAL HISTORY : None. ENCOUNTER: Subsequent ACUITY: 1 week PAIN SCORE: Non-responsive. LOCATION: Bilateral chest FINDINGS: ET tube tip 3 cm above the karina. Gastric tube traverses the [id number]. Left subclavian cathet er tip projects over the origin of the superior vena cava. There is persistent patchy infiltrates at the left base with loss of delineation of portion of the left hemidiaphragm. Decreasing infiltrates in the right infrahilar region. CONCLUSION: Persistent bilateral lower lung infiltrates, stable on the left and improved on the right. Claude Ritter MD on October 31, 2016 at 6:03 Board Certified Radiologist. This report was verified electronically.
[2016-10-31 07:14] LABS: HEMATOCRIT 25.3 % (39.0-51.0); MEAN CELL VOLUME 82.3 FL (80.0-100.0); MEAN CORPUSCULAR HEMOGLOBIN 27.9 PG (27.0-34.0); MEAN CORPUSCULAR HGB CONC 33.9 % (32.0-36.0); PLATELET COUNT 220 TH/MM3 (150-450); RED BLOOD COUNT 3.07 MIL/MM3 (4.50-5.90); RED CELL DISTRIBUTION WIDTH 16.4 % (11.6-17.2); REVIEW FLAG FINAL; WHITE BLOOD COUNT 10.8 TH/MM3 (4.0-11.0)
[2016-10-31] MEDS: CHLORHEXIDINE 0.12% (ORAL KIT) 15 ML CUP MT SCH ×2 (08:58→19:41)
[2016-10-31] MEDS: 3% SALINE INJ 500 ML IV SCH ×2 (09:51→21:45)
[2016-10-31] MEDS: levETIRAcetam INJ 500 MG in SODIUM CHLORIDE 0.9% INJ 100 ML IV SCH ×2 (09:56→21:33)
[2016-10-31] MEDS: PANTOPRAZOLE SODIUM 40 MG VIAL IV PUSH SCH (09:56)
[2016-10-31] MEDS: LACTULOSE SYRUP 20 GM/30 ML CUP PO SCH (09:56)
[2016-10-31] MEDS: MAGNESIUM HYDROXIDE SUSP 30 ML CUP PO SCH (09:56)
[2016-10-31] MEDS: METOPROLOL TARTRATE 25 MG TAB PO SCH ×2 (09:57→21:32)
[2016-10-31] MEDS: FUROSEMIDE 20 MG/2 ML VIAL IV PUSH SCH ×2 (09:57→18:05)
[2016-10-31] MEDS: SODIUM CHLORIDE 0.9% FLUSH 5 ML FLUSH IVF SCH ×2 (09:57→21:33)
[2016-10-31] MEDS: BACITRACIN TOP OINT 15 GM TUBE TOP SCH ×2 (09:58→21:33)
[2016-10-31] MEDS ORDERED: ALTEPLASE RECOMBINANT 2 MG VIAL IV ONE (10:15)
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
[2016-10-31] MEDS ORDERED: PHARMACY ORDERED LAB XX ONE (11:45)
[2016-10-31 12:05] LABS: VANCOMYCIN TROUGH 11.3 MCG/ML (5.0-10.0)
[2016-10-31] MEDS: VANCOMYCIN INJ 2,250 MG in SODIUM CHLORID 0.9% 500 ML INJ 500 ML IV SCH (12:38)
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
[2016-11-01] VITALS (21 sets, daily range): BP systolic 116–133; BP diastolic 54–62; PULSE 59–75; RESP 12–24; TEMP 98.1–99.9; O2SAT 96–100
[2016-11-01 00:07] LABS: BICARBONATE 31.4 MEQ/L (21.0-32.0)
[2016-11-01 00:09] LABS: POTASSIUM 5.1 MEQ/L (3.5-5.1)
[2016-11-01 00:24] LABS: CALCIUM-PROTEIN CORRECTED 8.2 MG/DL (8.5-10.1)
[2016-11-01] MEDS: LOW DOSE INSULIN NOVOLIN REGULAR SUPPLEMENTAL SCALE SQ SCH ×5 (04:00→19:57)
[2016-11-01] MEDS: CEFEPIME INJ 2,000 MG in SODIUM CHLORIDE 0.9% INJ 100 ML IV SCH ×3 (04:52→19:28)
[2016-11-01 05:17] LABS: BLOOD GAS BASE EXCESS 5.8 mmol/L (-2-2); BLOOD GAS HCO3 28 mmol/L (22-26); BLOOD GAS METHEMOGLOBIN 0.7 % (0-2); BLOOD GAS O2 HGB SATURATION 96 % (90-100); BLOOD GAS OXYGEN CONTENT 18.5 Vol % (12.0-20.0); BLOOD GAS PCO2 31 mmHg (38-42); BLOOD GAS PO2 107 mmHg (61-120); BLOOD GAS TOTAL HGB 13.6 G/DL (12.0-16.0); CRITICAL VALUE YES; OXYGEN DEVICE VENTILATOR; TEMP CORR TO 98.6
[2016-11-01 05:18] LABS: DRAW SITE RT RADIAL; FIO2 40 %; NUMBER OF ARTERIAL PUNCTURES 1; STAT NO; VENT SETTINGS PRVC
--- NOTE | 2016-11-01 05:28 | RADRPT ---
EXAM DATE/TIME: 11/01/2016 03:59 [facility] COMPARISON: CHEST SINGLE AP, October 31, 2016, 4:26. INDICATIONS : Shortness of breath, possible pulmonary disease. MEDICAL HISTORY : None. SURGICAL HISTORY : None. ENCOUNTER: Subsequent ACUITY: 1 week PAIN SCORE: Non-responsive. LOCATION: Bilateral chest FINDINGS: Endotracheal tube tip 2.5 cm above the karina. Gastric tube traverses the field of view. Left subcl rashaun catheter tip at the origin of the superior vena cava. There is persistent patchy areas of infi ltrate in the left mid and lower lung. There is improved aeration of the right lower lung and resolu tion of right infiltrates. CONCLUSION: Stable left lower lung consolidation and improved aeration of the right lung. Claude Ritter MD on November 01, 2016 at 5:26 Board Certified Radiologist. This report was verified electronically.
[2016-11-01 05:50] LABS: HEMATOCRIT 24.3 % (39.0-51.0); MEAN CELL VOLUME 82.7 FL (80.0-100.0); MEAN CORPUSCULAR HGB CONC 33.8 % (32.0-36.0); PLATELET COUNT 242 TH/MM3 (150-450); RED BLOOD COUNT 2.94 MIL/MM3 (4.50-5.90); RED CELL DISTRIBUTION WIDTH 16.2 % (11.6-17.2); REVIEW FLAG FINAL; WHITE BLOOD COUNT 7.9 TH/MM3 (4.0-11.0)
[2016-11-01] MEDS: METOPROLOL TARTRATE 25 MG TAB PO SCH ×2 (09:00→21:04)
[2016-11-01] MEDS: LACTULOSE SYRUP 20 GM/30 ML CUP PO SCH (09:37)
[2016-11-01] MEDS: MAGNESIUM HYDROXIDE SUSP 30 ML CUP PO SCH (09:37)
[2016-11-01] MEDS: PANTOPRAZOLE SODIUM 40 MG VIAL IV PUSH SCH (09:40)
[2016-11-01] MEDS: levETIRAcetam INJ 500 MG in SODIUM CHLORIDE 0.9% INJ 100 ML IV SCH ×2 (09:41→21:02)
[2016-11-01] MEDS: FUROSEMIDE 20 MG/2 ML VIAL IV PUSH SCH ×2 (09:41→18:00)
[2016-11-01] MEDS: SODIUM CHLORIDE 0.9% FLUSH 5 ML FLUSH IVF SCH ×2 (09:52→21:02)
[2016-11-01] MEDS: BACITRACIN TOP OINT 15 GM TUBE TOP SCH ×2 (09:54→21:04)
[2016-11-01] MEDS: CHLORHEXIDINE 0.12% (ORAL KIT) 15 ML CUP MT SCH ×2 (09:57→19:28)
[2016-11-01] MEDS: VANCOMYCIN INJ 2,250 MG in SODIUM CHLORID 0.9% 500 ML INJ 500 ML IV SCH (11:46)
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
[2016-11-01 17:33] LABS: BICARBONATE 33.1 MEQ/L (21.0-32.0); POTASSIUM 3.2 MEQ/L (3.5-5.1)
[2016-11-01] MEDS: 3% SALINE INJ 500 ML IV SCH (21:04)
[2016-11-02] VITALS (19 sets, daily range): BP systolic 114–136; BP diastolic 52–61; PULSE 60–89; RESP 12–14; TEMP 97.8–99.7; O2SAT 96–100
[2016-11-02] MEDS: CEFEPIME INJ 2,000 MG in SODIUM CHLORIDE 0.9% INJ 100 ML IV SCH ×2 (03:06→13:32)
[2016-11-02] MEDS: LOW DOSE INSULIN NOVOLIN REGULAR SUPPLEMENTAL SCALE SQ SCH ×6 (04:00→20:00)
[2016-11-02 07:16] LABS: POTASSIUM 3.5 MEQ/L (3.5-5.1)
[2016-11-02] MEDS: FUROSEMIDE 20 MG/2 ML VIAL IV PUSH SCH ×2 (08:40→17:34)
[2016-11-02] MEDS: levETIRAcetam INJ 500 MG in SODIUM CHLORIDE 0.9% INJ 100 ML IV SCH (08:42)
[2016-11-02] MEDS: PANTOPRAZOLE SODIUM 40 MG VIAL IV PUSH SCH (08:46)
[2016-11-02] MEDS: METOPROLOL TARTRATE 25 MG TAB PO SCH ×2 (08:49→21:00)
[2016-11-02] MEDS: LACTULOSE SYRUP 20 GM/30 ML CUP PO SCH (08:49)
[2016-11-02] MEDS: MAGNESIUM HYDROXIDE SUSP 30 ML CUP PO SCH (08:49)
[2016-11-02] MEDS: CHLORHEXIDINE 0.12% (ORAL KIT) 15 ML CUP MT SCH (08:53)
[2016-11-02] MEDS: SODIUM CHLORIDE 0.9% FLUSH 5 ML FLUSH IVF SCH (08:55)
[2016-11-02] MEDS: POTASSIUM CHLOR 40 MEQ PREMIX 100 ML IV PRN (08:56)
[2016-11-02] MEDS: BACITRACIN TOP OINT 15 GM TUBE TOP SCH (09:13)
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
[2016-11-02] MEDS: MORPHINE SULFATE 8 MG/ML INJ IV PUSH PRN (10:10)
[2016-11-02] MEDS ORDERED: fentaNYL 2,500 MCG/NS 250 ML IV SCH (11:00)
[2016-11-02] MEDS ORDERED: PHARMACY ORDERED LAB XX ONE (11:45)
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
[2016-11-02 12:42] LABS: VANCOMYCIN TROUGH 12.5 MCG/ML (5.0-10.0)
[2016-11-02] MEDS: VANCOMYCIN INJ 1,750 MG in SODIUM CHLORID 0.9% 500 ML INJ 500 ML IV SCH (14:32)
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
[2016-11-03] VITALS (21 sets, daily range): BP systolic 115–143; BP diastolic 49–62; PULSE 57–100; RESP 12–22; TEMP 98.8–101.5; O2SAT 92–100
[2016-11-03] MEDS: LOW DOSE INSULIN NOVOLIN REGULAR SUPPLEMENTAL SCALE SQ SCH ×6 (04:00→20:47)
[2016-11-03 05:07] LABS: BASOPHIL % 0.6 % (0.0-2.0); EOSINOPHIL # 0.4 TH/MM3 (0-0.4); EOSINOPHIL % 4.6 % (0.0-4.0); HEMATOCRIT 23.2 % (39.0-51.0); HEMO FLAGS DIFF FINAL; LYMPH % 14.5 % (9.0-44.0); LYMPHOCYTE # 1.2 TH/MM3 (1.0-4.8); MEAN CELL VOLUME 84.7 FL (80.0-100.0); MEAN CORPUSCULAR HEMOGLOBIN 27.5 PG (27.0-34.0); MEAN CORPUSCULAR HGB CONC 32.5 % (32.0-36.0); MONO % 7.8 % (0.0-8.0); NEUT % 72.5 % (16.0-70.0); PLATELET COUNT 299 TH/MM3 (150-450); RED BLOOD COUNT 2.74 MIL/MM3 (4.50-5.90); RED CELL DISTRIBUTION WIDTH 16.7 % (11.6-17.2); WHITE BLOOD COUNT 8.3 TH/MM3 (4.0-11.0)
[2016-11-03 05:18] LABS: BICARBONATE 32.6 MEQ/L (21.0-32.0); MAGNESIUM 2.6 MG/DL (1.5-2.5); POTASSIUM 4.1 MEQ/L (3.5-5.1)
--- NOTE | 2016-11-03 05:59 | RADRPT ---
EXAM DATE/TIME: 11/03/2016 04:59 [facility] COMPARISON: CHEST SINGLE AP, November 01, 2016, 3:59. INDICATIONS : Shortness of breath. MEDICAL HISTORY : None. SURGICAL HISTORY : None. ENCOUNTER: Subsequent ACUITY: 1 week PAIN SCORE: Non-responsive. LOCATION: Bilateral chest FINDINGS: A single view of the chest demonstrates unchanged position of the endotracheal tube, nasogastric tube and left subclavian central line. Small left pleural effusion. Minimal bibasilar densities again see n. The cardiomediastinal contours are unremarkable. Osseous structures are intact. CONCLUSION: 1. Stable bibasilar densities. 2. Small left pleural effusion. Roger Nick MD on November 03, 2016 at 5:56 Board Certified Radiologist. This report was verified electronically.
[2016-11-03] MEDS: CHLORHEXIDINE 0.12% (ORAL KIT) 15 ML CUP MT SCH ×3 (06:00→20:47)
[2016-11-03] MEDS: SODIUM CHLORIDE 0.9% FLUSH 5 ML FLUSH IVF SCH ×3 (06:01→20:48)
[2016-11-03] MEDS: BACITRACIN TOP OINT 15 GM TUBE TOP SCH ×3 (06:01→20:48)
[2016-11-03] MEDS: levETIRAcetam INJ 500 MG in SODIUM CHLORIDE 0.9% INJ 100 ML IV SCH ×3 (06:01→20:47)
--- NOTE | 2016-11-03 06:08 | RADRPT ---
EXAM DATE/TIME: 11/03/2016 05:08 [facility] COMPARISON: CT BRAIN W/O CONTRAST, October 28, 2016, 4:13. INDICATIONS : Follow up bleed. RADIATION DOSE: 60.90 CTDIvol (mGy) MEDICAL HISTORY : Non-responsive. SURGICAL HISTORY : Non-responsive. ENCOUNTER: Subsequent ACUITY: 2 months PAIN SCALE: Non-responsive LOCATION: cranial TECHNIQUE: Multiple contiguous axial images were obtained of the head. Using automated exposure control and adj ustment of the mA and/or kV according to patient size, radiation dose was kept as low as reasonably a chievable to obtain optimal diagnostic quality images. FINDINGS: CEREBRUM: Evolving right temporal intraparenchymal hemorrhages and adjacent vasogenic edema. Hemorrhage along t he right frontoparietal lobe in the parafalcine region is unchanged. Adjacent vasogenic edema again s een. Minimal right to left midline shift of one and 2 mm. Right-sided subdural hemorrhage appears sta ble. Right-sided craniotomy again noted. Right-sided pressure monitor has been removed. The ventricle s are stable in size. No evidence of mass lesion or acute infarction. POSTERIOR FOSSA: The cerebellum and brainstem are intact. The 4th ventricle is midline. The cerebellopontine angle i s unremarkable. EXTRACRANIAL: The visualized portion of the orbits is intact. Fluid throughout the paranasal sinuses. Fluid in the right mastoid air cells and middle ear cavity. SKULL: Right-sided craniotomy. CONCLUSION: 1. Evolving intraparenchymal hemorrhage in the right temporal and right frontoparietal lobes. 2. Stable subdural hemorrhage on the right. Roger Nick MD on November 03, 2016 at 5:59 Board Certified Radiologist. This report was verified electronically.
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
[2016-11-03] MEDS: VANCOMYCIN INJ 1,750 MG in SODIUM CHLORID 0.9% 500 ML INJ 500 ML IV SCH (08:14)
[2016-11-03] MEDS: LACTULOSE SYRUP 20 GM/30 ML CUP PO SCH (08:15)
[2016-11-03] MEDS: MAGNESIUM HYDROXIDE SUSP 30 ML CUP PO SCH (08:15)
[2016-11-03] MEDS: PANTOPRAZOLE SODIUM 40 MG VIAL IV PUSH SCH (08:15)
[2016-11-03] MEDS: METOPROLOL TARTRATE 25 MG TAB PO SCH ×2 (08:15→20:48)
[2016-11-03] MEDS: FUROSEMIDE 20 MG/2 ML VIAL IV PUSH SCH ×2 (08:15→17:22)
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
[2016-11-03 21:09] LABS: STAT NO
[2016-11-04] VITALS (19 sets, daily range): BP systolic 114–144; BP diastolic 55–67; PULSE 54–71; RESP 12–13; TEMP 98.8–99.5; O2SAT 99–100
[2016-11-04] MEDS ORDERED: PHARMACY ORDERED LAB XX ONE (02:45)
[2016-11-04] MEDS: VANCOMYCIN INJ 1,750 MG in SODIUM CHLORID 0.9% 500 ML INJ 500 ML IV SCH ×2 (03:07→22:26)
[2016-11-04] MEDS: LOW DOSE INSULIN NOVOLIN REGULAR SUPPLEMENTAL SCALE SQ SCH ×7 (04:00→23:34)
[2016-11-04] MEDS: CHLORHEXIDINE 0.12% (ORAL KIT) 15 ML CUP MT SCH ×2 (07:54→21:52)
[2016-11-04] MEDS ORDERED: MORPHINE SULFATE 4 MG/ML INJ IV PRN (08:00)
[2016-11-04] MEDS: levETIRAcetam INJ 500 MG in SODIUM CHLORIDE 0.9% INJ 100 ML IV SCH ×2 (08:19→21:53)
[2016-11-04] MEDS: PANTOPRAZOLE SODIUM 40 MG VIAL IV PUSH SCH (08:19)
[2016-11-04] MEDS: FUROSEMIDE 20 MG/2 ML VIAL IV PUSH SCH ×2 (08:19→18:17)
[2016-11-04] MEDS: LACTULOSE SYRUP 20 GM/30 ML CUP PO SCH (08:20)
[2016-11-04] MEDS: METOPROLOL TARTRATE 25 MG TAB PO SCH ×2 (08:20→21:00)
[2016-11-04] MEDS: MAGNESIUM HYDROXIDE SUSP 30 ML CUP PO SCH (08:20)
[2016-11-04] MEDS: SODIUM CHLORIDE 0.9% FLUSH 5 ML FLUSH IVF SCH ×2 (08:20→21:53)
[2016-11-04] MEDS: BACITRACIN TOP OINT 15 GM TUBE TOP SCH ×2 (09:19→21:54)
[2016-11-04] MEDS: MODAFINIL 200 MG TAB PO SCH (09:19)
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
[2016-11-04] MEDS: LEVOFLOXACIN 500 MG PREMIX INJ 100 ML IV SCH (11:20)
[2016-11-04 11:27] LABS: BLOOD GAS HCO3 34 mmol/L (22-26); BLOOD GAS METHEMOGLOBIN 0.8 % (0-2); BLOOD GAS O2 HGB SATURATION 96 % (90-100); BLOOD GAS OXYGEN CONTENT 13.3 Vol % (12.0-20.0); BLOOD GAS PCO2 42 mmHg (38-42); BLOOD GAS PO2 111 mmHg (61-120); BLOOD GAS TOTAL HGB 9.8 G/DL (12.0-16.0); CRITICAL VALUE YES; OXYGEN DEVICE VENTILATOR; TEMP CORR TO 98.6
[2016-11-04 11:28] LABS: DRAW SITE LT RADIAL; FIO2 50 %; NUMBER OF ARTERIAL PUNCTURES 1; STAT NO; ULNAR PULSE Y; VENT SETTINGS PRVC/AC/VT600/P7
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
[2016-11-05] VITALS (18 sets, daily range): BP systolic 123–184; BP diastolic 56–114; PULSE 53–69; RESP 12–24; TEMP 98.4–98.8; O2SAT 98–100
[2016-11-05] MEDS: LOW DOSE INSULIN NOVOLIN REGULAR SUPPLEMENTAL SCALE SQ SCH (04:00)
[2016-11-05 04:07] LABS: AUTOMATED NEUTROPHIL # 6.2 TH/MM3 (1.8-7.7); BASOPHIL % 0.3 % (0.0-2.0); EOSINOPHIL # 0.3 TH/MM3 (0-0.4); EOSINOPHIL % 3.5 % (0.0-4.0); HEMATOCRIT 28.7 % (39.0-51.0); HEMO FLAGS DIFF FINAL; MEAN CORPUSCULAR HEMOGLOBIN 27.8 PG (27.0-34.0); MEAN CORPUSCULAR HGB CONC 32.7 % (32.0-36.0); NEUT % 77.2 % (16.0-70.0); PLATELET COUNT 295 TH/MM3 (150-450); RED BLOOD COUNT 3.37 MIL/MM3 (4.50-5.90); RED CELL DISTRIBUTION WIDTH 16.6 % (11.6-17.2)
[2016-11-05 04:25] LABS: BICARBONATE 35.2 MEQ/L (21.0-32.0); POTASSIUM 4.1 MEQ/L (3.5-5.1)
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
[2016-11-05] MEDS: CHLORHEXIDINE 0.12% (ORAL KIT) 15 ML CUP MT SCH ×2 (09:17→20:03)
[2016-11-05] MEDS: MAGNESIUM HYDROXIDE SUSP 30 ML CUP PO SCH (09:17)
[2016-11-05] MEDS: LACTULOSE SYRUP 20 GM/30 ML CUP PO SCH (09:17)
[2016-11-05] MEDS: levETIRAcetam INJ 500 MG in SODIUM CHLORIDE 0.9% INJ 100 ML IV SCH ×2 (09:18→20:03)
[2016-11-05] MEDS: BACITRACIN TOP OINT 15 GM TUBE TOP SCH ×2 (09:18→20:02)
[2016-11-05] MEDS: SODIUM CHLORIDE 0.9% FLUSH 5 ML FLUSH IVF SCH ×2 (09:18→20:02)
[2016-11-05] MEDS: PANTOPRAZOLE SODIUM 40 MG VIAL IV PUSH SCH (09:18)
[2016-11-05] MEDS: FUROSEMIDE 20 MG/2 ML VIAL IV PUSH SCH ×2 (09:19→18:00)
[2016-11-05] MEDS: LEVOFLOXACIN 500 MG PREMIX INJ 100 ML IV SCH (09:20)
[2016-11-05] MEDS: METOPROLOL TARTRATE 25 MG TAB PO SCH ×2 (09:20→20:02)
[2016-11-05] MEDS: MODAFINIL 200 MG TAB PO SCH (09:20)
[2016-11-05] MEDS ORDERED: HYOSCYAMINE 0.125 MG TAB PO PRN (10:00)
[2016-11-05] MEDS ORDERED: fentaNYL 2,500 MCG/NS 250 ML IV SCH (11:00)
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
[2016-11-06] VITALS (18 sets, daily range): BP systolic 117–145; BP diastolic 56–68; PULSE 54–74; RESP 12–13; TEMP 97.8–98.6; O2SAT 96–100
[2016-11-06] MEDS: SODIUM CHLORIDE 0.9% FLUSH 5 ML FLUSH IVF SCH ×2 (07:37→20:31)
[2016-11-06] MEDS: PANTOPRAZOLE SODIUM 40 MG VIAL IV PUSH SCH (08:31)
[2016-11-06] MEDS: CHLORHEXIDINE 0.12% (ORAL KIT) 15 ML CUP MT SCH ×2 (08:31→20:27)
[2016-11-06] MEDS: levETIRAcetam INJ 500 MG in SODIUM CHLORIDE 0.9% INJ 100 ML IV SCH ×2 (08:31→20:31)
[2016-11-06] MEDS: FUROSEMIDE 20 MG/2 ML VIAL IV PUSH SCH ×2 (08:31→17:33)
[2016-11-06] MEDS: BACITRACIN TOP OINT 15 GM TUBE TOP SCH ×2 (08:32→20:32)
[2016-11-06] MEDS: METOPROLOL TARTRATE 25 MG TAB PO SCH ×2 (08:32→20:31)
[2016-11-06] MEDS: MAGNESIUM HYDROXIDE SUSP 30 ML CUP PO SCH (08:32)
[2016-11-06] MEDS: LEVOFLOXACIN 500 MG PREMIX INJ 100 ML IV SCH (08:32)
[2016-11-06] MEDS: MODAFINIL 200 MG TAB PO SCH (08:32)
[2016-11-06] MEDS: LACTULOSE SYRUP 20 GM/30 ML CUP PO SCH (08:32)
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
[2016-11-07] VITALS (17 sets, daily range): BP systolic 109–140; BP diastolic 55–60; PULSE 55–75; RESP 12–19; TEMP 96.9–98.9; O2SAT 74–100
[2016-11-07] MEDS: SODIUM CHLORIDE 0.9% FLUSH 5 ML FLUSH IVF SCH (07:03)
[2016-11-07] MEDS: CHLORHEXIDINE 0.12% (ORAL KIT) 15 ML CUP MT SCH (08:29)
[2016-11-07] MEDS: LACTULOSE SYRUP 20 GM/30 ML CUP PO SCH (08:30)
[2016-11-07] MEDS: PANTOPRAZOLE SODIUM 40 MG VIAL IV PUSH SCH (08:30)
[2016-11-07] MEDS: MAGNESIUM HYDROXIDE SUSP 30 ML CUP PO SCH (08:30)
[2016-11-07] MEDS: levETIRAcetam INJ 500 MG in SODIUM CHLORIDE 0.9% INJ 100 ML IV SCH (08:30)
[2016-11-07] MEDS: METOPROLOL TARTRATE 25 MG TAB PO SCH (08:31)
[2016-11-07] MEDS: MODAFINIL 200 MG TAB PO SCH (08:31)
[2016-11-07] MEDS: BACITRACIN TOP OINT 15 GM TUBE TOP SCH (08:31)
[2016-11-07] MEDS: FUROSEMIDE 20 MG/2 ML VIAL IV PUSH SCH (08:31)
[2016-11-07] MEDS: LEVOFLOXACIN 500 MG PREMIX INJ 100 ML IV SCH (09:11)
[2016-11-07] MEDS ORDERED: MORPHINE SULFATE 8 MG/ML INJ IV PUSH ONE (11:30)
[2016-11-07] MEDS ORDERED: MIDAZOLAM HCL 5 MG/ML VIAL (1 ML) IV ONE (11:30)
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
[2016-11-07] MEDS ORDERED: MORPHINE SULFATE 4 MG/ML INJ IV ONE (11:45)
[2016-11-07] MEDS: LORazepam 2 MG/ML VIAL IV SCH ×3 (12:00→20:30)
[2016-11-07] MEDS: MORPHINE SULFATE 4 MG/ML INJ IV SCH ×3 (12:00→20:30)
[2016-11-07 23:55] LABS: STAT NO
[2016-11-08] VITALS (7 sets, daily range): BP systolic 103–135; BP diastolic 47–61; PULSE 80–96; RESP 18–23; TEMP 97.6–99; O2SAT 67–91
[2016-11-08] MEDS: MORPHINE SULFATE 4 MG/ML INJ IV SCH ×7 (00:13→23:04)
[2016-11-08] MEDS: LORazepam 2 MG/ML VIAL IV SCH ×7 (00:13→23:04)
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
[2016-11-09] VITALS: BP 133/59; PULSE 102; RESP 26; TEMP 99.2; O2SAT 58
[2016-11-09] MEDS: MORPHINE SULFATE 4 MG/ML INJ IV SCH ×2 (03:10→08:59)
[2016-11-09] MEDS: LORazepam 2 MG/ML VIAL IV SCH ×2 (03:10→08:59)
[2016-11-09 04:00] VITALS: BP 131/60; PULSE 102; RESP 27; TEMP 99.1; O2SAT 50
[2016-11-09 08:00] VITALS: BP 78/40; PULSE 62; PULSE 65; RESP 28; TEMP 100.2; O2SAT 63
[2016-11-09 09:04] VITALS: RESP 34
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
[2016-11-10 09:06] LABS: FIO2 40 %
== END 2016-11-09 11:27 | disposition expired | DRG 955 ==
LOC: NEPI 21:05 → EDBD 21:30 → NEDA 21:30 → N03A 10-25 00:41
PROVIDERS: ADMIT Surgery; ATTEND Surgery
PROC: 5A1955Z Respiratory Ventilation, Greater than 96 Consecutive Hours (ICD-10-PCS; 2016-10-24)
PROC: 00C40ZZ Extirpation of Matter from Intracranial Subdural Space, Open Approach (ICD-10-PCS; 2016-10-24)
PROC: 0BH17EZ Insertion of Endotracheal Airway into Trachea, Via Natural or Artificial Opening (ICD-10-PCS; 2016-10-24)
PROC: 30233N1 Transfusion of Nonautologous Red Blood Cells into Peripheral Vein, Percutaneous Approach (ICD-10-PCS; 2016-10-24)
PROC: 009600Z Drainage of Cerebral Ventricle with Drainage Device, Open Approach (ICD-10-PCS; principal; 2016-10-24 21:56)
DX: S06.5X9A Traumatic subdural hemorrhage with loss of consciousness of unspecified duration, initial encounter (principal); S27.1XXA Traumatic hemothorax, initial encounter; S06.6X9A Traumatic subarachnoid hemorrhage with loss of consciousness of unspecified duration, initial encounter; J96.00 Acute respiratory failure, unspecified whether with hypoxia or hypercapnia; J15.1 Pneumonia due to Pseudomonas; G93.40 Encephalopathy, unspecified; J90 Pleural effusion, not elsewhere classified; Z99.11 Dependence on respirator [ventilator] status; E87.2 Acidosis; S22.018A Other fracture of first thoracic vertebra, initial encounter for closed fracture; S27.322A Contusion of lung, bilateral, initial encounter; I47.1 Supraventricular tachycardia; S22.43XA Multiple fractures of ribs, bilateral, initial encounter for closed fracture; D62 Acute posthemorrhagic anemia; S06.1X9A Traumatic cerebral edema with loss of consciousness of unspecified duration, initial encounter; I95.9 Hypotension, unspecified; J44.9 Chronic obstructive pulmonary disease, unspecified; S02.19XA Other fracture of base of skull, initial encounter for closed fracture; I27.2 Other secondary pulmonary hypertension; E83.51 Hypocalcemia; S01.01XA Laceration without foreign body of scalp, initial encounter; S41.112A Laceration without foreign body of left upper arm, initial encounter; K43.5 Parastomal hernia without obstruction or gangrene; S20.312A Abrasion of left front wall of thorax, initial encounter; V49.40XA Driver injured in collision with unspecified motor vehicles in traffic accident, initial encounter; Y93.89 Activity, other specified; Y92.410 Unspecified street and highway as the place of occurrence of the external cause; S60.511A Abrasion of right hand, initial encounter; S00.12XA Contusion of left eyelid and periocular area, initial encounter; S00.11XA Contusion of right eyelid and periocular area, initial encounter; J32.4 Chronic pansinusitis; E87.6 Hypokalemia; R00.1 Bradycardia, unspecified; I08.1 Rheumatic disorders of both mitral and tricuspid valves; F02.80 Dementia in other diseases classified elsewhere, unspecified severity, without behavioral disturbance, psychotic disturbance, mood disturbance, and anxiety; Z51.5 Encounter for palliative care; Z66 Do not resuscitate; Z85.038 Personal history of other malignant neoplasm of large intestine; E11.9 Type 2 diabetes mellitus without complications; G31.9 Degenerative disease of nervous system, unspecified; R13.10 Dysphagia, unspecified; I10 Essential (primary) hypertension
CPT/HCPCS: 31500; 36430; 36600; 70450; 70486; 71010; 71260; 72125; 72170; 74177; 74270; 80048; 80053; 80076; 80202; 80320; 82272; 82330; 82435; 82565; 82805; 82947; 82948; 83735; 83930; 84100; 84132; 84155; 84295; 84520; 85007; 85014; 85018; 85025; 85027; 85384; 85610; 85730; 86850; 86900; 86901; 86920; 87070; 87077; 87186; 87205; 87641; 88304; 90471; 93005; 93306; 94002; 94003; 94640; 94664; 95819; 96374; 96375; 99291; C1713; C9113; G0390; J0153; J0171; J0610; J0690; J0692; J1940; J1953; J1956; J2060; J2250; J2270; J2370; J2405; J2997; J3010; J3370; J3475; J3480; J7030; J7040; J7050; J7060; J7120; P9016; P9045; Q9967